=== PATIENT | male | born 1980 | race Caucasian/White ===

== ENCOUNTER 2020-07-07 12:15 | Emergency (ER) | payer OTHER, SELFPAY ==
--- NOTE | ~2020-07-07 | XR_ITS ---
EXAMINATION: XR CHEST CLINICAL INFORMATION: Leg swelling COMPARISON: 09/29/2019 TECHNIQUE: 2 views of the chest were obtained. FINDINGS: The lungs are well expanded. There is no focal consolidation, edema, or effusion. No pneumothorax. The cardiomediastinal silhouette is within normal limits. No acute osseous abnormality. XR/XR chest 2V IMPRESSION: Clear lungs.
[2020-07-07 13:29] VITALS: BP 143/84; PULSE 83; RESP 18; TEMP 36.8; O2SAT 96; BMI 34.4
--- NOTE | 2020-07-07 13:35 | ED.GENADULT ---
HPI - General Adult General Chief complaint: Weakness <Lizeth Espinoza NP - Last Filed: 07/07/20 13:38> Stated complaint: dehydrated,weakness <Lizeth Espinoza NP - Last Filed: 07/07/20 13:38> Time Seen by Provider: 07/07/20 13:35 <Lizeth Espinoza NP - Last Filed: 07/07/20 13:38> Source: patient <Ricardo Jones MD - Last Filed: 07/07/20 20:53> Mode of arrival: ambulatory <Ricardo Jones MD - Last Filed: 07/07/20 20:53> Limitations: no limitations <Ricardo Jones MD - Last Filed: 07/07/20 20:53> History of Present Illness HPI narrative: Patient with no significant past medical history 100 <Ricardo Jones MD - Last Filed: 07/07/20 20:53> Onset (ago): month(s) <Ricardo Jones MD - Last Filed: 07/07/20 20:53> Related Data Allergies/adverse reactions: Allergies Allergy/AdvReac Type Severity Reaction Status Date / Time codeine [CODEINE] Allergy Intermediate MY THROAT Unverified 02/18/20 16:26 AND CHEST FLOYD LOBSTER Allergy Unknown UNKNOWN Uncoded 02/18/20 16:26 SEAFOOD Allergy Unknown UNKNOWN Uncoded 02/18/20 16:26 SHELLFISH Allergy Unknown VOMITTING Uncoded 02/14/17 00:00 shellfish Allergy Unknown Swelling Uncoded 07/07/20 13:39 <Lizeth Espinoza NP - Last Filed: 07/07/20 13:38> [facility] Past Medical History Medical History: Medical History (Updated 07/07/20 @ 20:24 by Ricardo Jones MD) Hx of opioid abuse No known health problems <Lizeth Espinoza NP - Last Filed: 07/07/20 13:38> Social History Social History: Social History Advance Directives: No Advance Directives Information Provided: No <Lizeth Espinoza NP - Last Filed: 07/07/20 13:38> Physical Exam Vital Signs: Vital Signs: Last Vital Signs Temp 97.7 F 07/07/20 20:00 Pulse 65 07/07/20 20:00 Resp 18 07/07/20 20:00 BP 127/90 H 07/07/20 20:00 Pulse Ox 96 07/07/20 20:00 Body Mass Index 34.4 <Lizeth Espinoza NP - Last Filed: 07/07/20 13:38> Vital Signs: Last Vital Signs Temp 97.7 F 07/07/20 20:00 Pulse 65 07/07/20 20:00 Resp 18 07/07/20 20:00 BP 127/90 H 07/07/20 20:00 Pulse Ox 96 07/07/20 20:00 Body Mass Index 34.4 <Ricardo Jones MD - Last Filed: 07/07/20 20:53> Course Course Course Narrative: 1330-This is a rapid medical exam. 39 yo male here with generalized weakness, malaise x 2 months, bilateral lower edema. No chest pain, SOB. Will need labs, UA, CXR. Deferred additional HPI, PE and ROS to primary provider. <Lizeth Espinoza NP - Last Filed: 07/07/20 13:38> Medical Decision Making Lab Data Result diagrams: : 07/07/20 14:03 07/07/20 14:03 <Lizeth Espinoza NP - Last Filed: 07/07/20 13:38> Labs: Lab Results 07/07/20 07/07/20 07/07/20 Range/Units 14:03 14:03 14:03 WBC 4.9 (4.8-10.8) X10*3/uL RBC 4.63 (4.60-5.80) X10*6/uL Hgb 14.8 (14.0-18.0) g/dl Hct 44.8 (42-52) % MCV 96.8 (80-98) fL MCH 32.0 (27.0-33.0) pg MCHC 33.0 (31.0-36.0) g/dl RDW 11.9 (11.0-16.0) % Plt Count 173 (160-400) X10*3/uL MPV 10.3 (9.4-12.4) fL Immature Gran % (Auto) 0.2 (0.0-0.4) % Neut % (Auto) 48.8 (45-73) % Lymph % (Auto) 37.2 (20-40) % [place] % (Auto) 8.5 (2-11) % Eos % (Auto) 4.9 H (0-4) % Baso % (Auto) 0.4 (0-2) % Lymph # (Auto) 1.8 (1.2-4.9) X10*3/uL [place] # (Auto) 0.4 (0.1-1.2) X10*3/uL Eos # (Auto) 0.2 (0.0-0.4) X10*3/uL Baso # (Auto) 0.0 (0.0-0.2) X10*3/uL Abs Immat Gran (auto) 0.01 (0.00-0.03) X10*3/uL Absolute Neuts (auto) 2.4 (2.0-8.3) X10*3/uL Absolute Nucleated RBC 0.000 (0.0-0.012) X10*3/uL Nucleated RBC % (auto) 0.0 (0.0-0.2) /100WBC Hold Blue Top SEE NOTE Sodium 137 (135-145) mmol/L Potassium 4.6 (3.3-5.1) mmol/L Chloride 101 (96-108) mmol/L Carbon Dioxide 29 (22-29) mmol/L Anion Gap 12 (12-20) BUN 14 (9-16) mg/dL Creatinine 0.87 (0.5-1.4) mg/dL Estim Creat Clear Calc 138.0 Estimated GFR > 60 Random Glucose 98 (60-115) mg/dL Calcium 8.8 (8.4-10.2) mg/dL Magnesium 2.3 (1.6-2.6) mg/dL Total Bilirubin 0.3 (0.0-1.0) mg/dL Direct Bilirubin 0.2 (0.0-0.5) mg/dL AST 47 H (5-37) U/L ALT 63 H (0-40) U/L Alkaline Phosphatase 84 (39-117) U/L Total Protein 7.4 (6.5-8.0) g/dL Albumin 4.5 (3.5-5.0) g/dL Urine Color Urine Appearance Urine pH (5.0-8.0) Ur Specific [place] (1.005-1.025) Urine Protein (NEG-TRACE) MG/DL Urine Glucose (UA) (NEG) MG/DL Urine Ketones (NEG) MG/DL Urine Blood (NEG) Urine Nitrite (NEG) Ur Leukocyte Esterase (NEG) 07/07/20 Range/Units 19:50 WBC (4.8-10.8) X10*3/uL RBC (4.60-5.80) X10*6/uL Hgb (14.0-18.0) g/dl Hct (42-52) % MCV (80-98) fL MCH (27.0-33.0) pg MCHC (31.0-36.0) g/dl RDW (11.0-16.0) % Plt Count (160-400) X10*3/uL MPV (9.4-12.4) fL Immature Gran % (Auto) (0.0-0.4) % Neut % (Auto) (45-73) % Lymph % (Auto) (20-40) % [place] % (Auto) (2-11) % Eos % (Auto) (0-4) % Baso % (Auto) (0-2) % Lymph # (Auto) (1.2-4.9) X10*3/uL [place] # (Auto) (0.1-1.2) X10*3/uL Eos # (Auto) (0.0-0.4) X10*3/uL Baso # (Auto) (0.0-0.2) X10*3/uL Abs Immat Gran (auto) (0.00-0.03) X10*3/uL Absolute Neuts (auto) (2.0-8.3) X10*3/uL Absolute Nucleated RBC (0.0-0.012) X10*3/uL Nucleated RBC % (auto) (0.0-0.2) /100WBC Hold Blue Top Sodium (135-145) mmol/L Potassium (3.3-5.1) mmol/L Chloride (96-108) mmol/L Carbon Dioxide (22-29) mmol/L Anion Gap (12-20) BUN (9-16) mg/dL Creatinine (0.5-1.4) mg/dL Estim Creat Clear Calc Estimated GFR Random Glucose (60-115) mg/dL Calcium (8.4-10.2) mg/dL Magnesium (1.6-2.6) mg/dL Total Bilirubin (0.0-1.0) mg/dL Direct Bilirubin (0.0-0.5) mg/dL AST (5-37) U/L ALT (0-40) U/L Alkaline Phosphatase (39-117) U/L Total Protein (6.5-8.0) g/dL Albumin (3.5-5.0) g/dL Urine Color YELLOW Urine Appearance CLEAR Urine pH 5.5 (5.0-8.0) Ur Specific [place] >= 1.030 H (1.005-1.025) Urine Protein NEG (NEG-TRACE) MG/DL Urine Glucose (UA) NEG (NEG) MG/DL Urine Ketones NEG (NEG) MG/DL Urine Blood NEG (NEG) Urine Nitrite NEG (NEG) Ur Leukocyte Esterase NEG (NEG) <Lizeth Espinoza NP - Last Filed: 07/07/20 13:38> Lab Results 07/07/20 07/07/20 07/07/20 Range/Units 14:03 14:03 14:03 WBC 4.9 (4.8-10.8) X10*3/uL RBC 4.63 (4.60-5.80) X10*6/uL Hgb 14.8 (14.0-18.0) g/dl Hct 44.8 (42-52) % MCV 96.8 (80-98) fL MCH 32.0 (27.0-33.0) pg MCHC 33.0 (31.0-36.0) g/dl RDW 11.9 (11.0-16.0) % Plt Count 173 (160-400) X10*3/uL MPV 10.3 (9.4-12.4) fL Immature Gran % (Auto) 0.2 (0.0-0.4) % Neut % (Auto) 48.8 (45-73) % Lymph % (Auto) 37.2 (20-40) % [place] % (Auto) 8.5 (2-11) % Eos % (Auto) 4.9 H (0-4) % Baso % (Auto) 0.4 (0-2) % Lymph # (Auto) 1.8 (1.2-4.9) X10*3/uL [place] # (Auto) 0.4 (0.1-1.2) X10*3/uL Eos # (Auto) 0.2 (0.0-0.4) X10*3/uL Baso # (Auto) 0.0 (0.0-0.2) X10*3/uL Abs Immat Gran (auto) 0.01 (0.00-0.03) X10*3/uL Absolute Neuts (auto) 2.4 (2.0-8.3) X10*3/uL Absolute Nucleated RBC 0.000 (0.0-0.012) X10*3/uL Nucleated RBC % (auto) 0.0 (0.0-0.2) /100WBC Hold Blue Top SEE NOTE Sodium 137 (135-145) mmol/L Potassium 4.6 (3.3-5.1) mmol/L Chloride 101 (96-108) mmol/L Carbon Dioxide 29 (22-29) mmol/L Anion Gap 12 (12-20) BUN 14 (9-16) mg/dL Creatinine 0.87 (0.5-1.4) mg/dL Estim Creat Clear Calc 138.0 Estimated GFR > 60 Random Glucose 98 (60-115) mg/dL Calcium 8.8 (8.4-10.2) mg/dL Magnesium 2.3 (1.6-2.6) mg/dL Total Bilirubin 0.3 (0.0-1.0) mg/dL Direct Bilirubin 0.2 (0.0-0.5) mg/dL AST 47 H (5-37) U/L ALT 63 H (0-40) U/L Alkaline Phosphatase 84 (39-117) U/L Total Protein 7.4 (6.5-8.0) g/dL Albumin 4.5 (3.5-5.0) g/dL Urine Color Urine Appearance Urine pH (5.0-8.0) Ur Specific [place] (1.005-1.025) Urine Protein (NEG-TRACE) MG/DL Urine Glucose (UA) (NEG) MG/DL Urine Ketones (NEG) MG/DL Urine Blood (NEG) Urine Nitrite (NEG) Ur Leukocyte Esterase (NEG) 07/07/20 Range/Units 19:50 WBC (4.8-10.8) X10*3/uL RBC (4.60-5.80) X10*6/uL Hgb (14.0-18.0) g/dl Hct (42-52) % MCV (80-98) fL MCH (27.0-33.0) pg MCHC (31.0-36.0) g/dl RDW (11.0-16.0) % Plt Count (160-400) X10*3/uL MPV (9.4-12.4) fL Immature Gran % (Auto) (0.0-0.4) % Neut % (Auto) (45-73) % Lymph % (Auto) (20-40) % [place] % (Auto) (2-11) % Eos % (Auto) (0-4) % Baso % (Auto) (0-2) % Lymph # (Auto) (1.2-4.9) X10*3/uL [place] # (Auto) (0.1-1.2) X10*3/uL Eos # (Auto) (0.0-0.4) X10*3/uL Baso # (Auto) (0.0-0.2) X10*3/uL Abs Immat Gran (auto) (0.00-0.03) X10*3/uL Absolute Neuts (auto) (2.0-8.3) X10*3/uL Absolute Nucleated RBC (0.0-0.012) X10*3/uL Nucleated RBC % (auto) (0.0-0.2) /100WBC Hold Blue Top Sodium (135-145) mmol/L Potassium (3.3-5.1) mmol/L Chloride (96-108) mmol/L Carbon Dioxide (22-29) mmol/L Anion Gap (12-20) BUN (9-16) mg/dL Creatinine (0.5-1.4) mg/dL Estim Creat Clear Calc Estimated GFR Random Glucose (60-115) mg/dL Calcium (8.4-10.2) mg/dL Magnesium (1.6-2.6) mg/dL Total Bilirubin (0.0-1.0) mg/dL Direct Bilirubin (0.0-0.5) mg/dL AST (5-37) U/L ALT (0-40) U/L Alkaline Phosphatase (39-117) U/L Total Protein (6.5-8.0) g/dL Albumin (3.5-5.0) g/dL Urine Color YELLOW Urine Appearance CLEAR Urine pH 5.5 (5.0-8.0) Ur Specific [place] >= 1.030 H (1.005-1.025) Urine Protein NEG (NEG-TRACE) MG/DL Urine Glucose (UA) NEG (NEG) MG/DL Urine Ketones NEG (NEG) MG/DL Urine Blood NEG (NEG) Urine Nitrite NEG (NEG) Ur Leukocyte Esterase NEG (NEG) <Ricardo Jones MD - Last Filed: 07/07/20 20:53> Discharge Plan Discharge Clinical Impression: Weakness <Lizeth Espinoza NP - Last Filed: 07/07/20 13:38> Patient Disposition: Home, Self-Care <Lizeth Espinoza NP - Last Filed: 07/07/20 13:38> Instructions: Weakness (ED) <Lizeth Espinoza NP - Last Filed: 07/07/20 13:38> Additional Instructions: Drink plenty of fluid. Avoid fried and high carbohydrate diet , avoid alcohol Rest at home sleep well. Follow with PCP for routine workup and recheck of liver function <Lizeth Espinoza NP - Last Filed: 07/07/20 13:38> Stand Alone Forms: Work/School Release <Lizeth Espinoza NP - Last Filed: 07/07/20 13:38> Interventions: ED Discharge Assessment Last Done: 07/07/20 20:47 <Lizeth Espinoza NP - Last Filed: 07/07/20 13:38> Discharge Date/Time: 07/07/20 20:52 <Lizeth Espinoza NP - Last Filed: 07/07/20 13:38>
[2020-07-07 14:08] LABS: MANUAL DIFF FLAG NO
[2020-07-07 14:13] LABS: Basophils Percent Auto 0.4 % (0-2); Eosinophils Absolute Auto 0.2 X10*3/uL (0.0-0.4); Eosinophils Percent Auto 4.9 % (0-4); Hematocrit 44.8 % (42-52); Hemoglobin 14.8 g/dl (14.0-18.0); Imm Gran Abs Auto 0.01 X10*3/uL (0.00-0.03); Imm Gran Pct Auto 0.2 % (0.0-0.4); Lymphocytes Absolute Auto 1.8 X10*3/uL (1.2-4.9); Lymphocytes Percent Auto 37.2 % (20-40); Mean Corpuscular Volume 96.8 fL (80-98); Mean Platelet Volume 10.3 fL (9.4-12.4); Monocytes Absolute Auto 0.4 X10*3/uL (0.1-1.2); Monocytes Percent Auto 8.5 % (2-11); Neutrophils Absolute Auto 2.4 X10*3/uL (2.0-8.3); Neutrophils Percent Auto 48.8 % (45-73); Platelet Count 173 X10*3/uL (160-400); Red Blood Count 4.63 X10*6/uL (4.60-5.80); Red Cell Distribution Width 11.9 % (11.0-16.0); White Blood Count 4.9 X10*3/uL (4.8-10.8)
[2020-07-07 14:31] LABS: Alanine Aminotransferase 63 U/L (0-40); Albumin Level 4.5 g/dL (3.5-5.0); Alkaline Phosphatase 84 U/L (39-117); Anion Gap 12 (12-20); Aspartate Amino Transferase 47 U/L (5-37); Bilirubin Direct 0.2 mg/dL (0.0-0.5); Bilirubin Total 0.3 mg/dL (0.0-1.0); Blood Urea Nitrogen 14 mg/dL (9-16); Calcium 8.8 mg/dL (8.4-10.2); Carbon Dioxide 29 mmol/L (22-29); Chloride 101 mmol/L (96-108); Estimated Glomerular Filt Rate > 60; Glucose Random 98 mg/dL (60-115); Magnesium 2.3 mg/dL (1.6-2.6); Potassium 4.6 mmol/L (3.3-5.1); Sodium 137 mmol/L (135-145); Total Protein 7.4 g/dL (6.5-8.0)
[2020-07-07 19:57] LABS: Glucose Urine UA NEG (NEG); Leukocyte Esterase Urine NEG (NEG); Nitrite Urine NEG (NEG); PH 5.5 (5.0-8.0); Specific Gravity - Urine >= 1.030 (1.005-1.025); Urine Blood NEG (NEG); Urine Ketones NEG (NEG); Urine Protein NEG (NEG-TRACE)
[2020-07-07 19:58] LABS: Appearance Urine CLEAR; Color Urine YELLOW
[2020-07-07 20:00] VITALS: BP 127/90; PULSE 65; RESP 18; TEMP 36.5; O2SAT 96
--- NOTE | 2020-07-07 20:16 | ED.WEAKNESS ---
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 not eating well denies any fever no chills no cough no one at home is COVID positive also slight leg edema Complaint: generalized weakness Related Data Allergies Allergy/AdvReac Type Severity Reaction Status Date / Time codeine [CODEINE] Allergy Intermediate MY THROAT Unverified 02/18/20 16:26 AND CHEST FLOYD LOBSTER Allergy Unknown UNKNOWN Uncoded 02/18/20 16:26 SEAFOOD Allergy Unknown UNKNOWN Uncoded 02/18/20 16:26 SHELLFISH Allergy Unknown VOMITTING Uncoded 02/14/17 00:00 shellfish Allergy Unknown Swelling Uncoded 07/07/20 13:39 Review of Systems Review of Systems: Constitutional : No Weight loss, No Fever, No Chills ENT/Mouth : No sore throat, No Rhinorrhea Eyes: No Eye Pain, No Swelling Cardiovascular : No Chest Pain, no palpitations Respiratory : No Cough, No Sputum, no shortness of breath Gastrointestinal : no Nausea, No Vomiting, No Diarrhea, No abdominal Pain, no black stools Genitourinary : No Dysuria, No Urinary Frequency Musculoskeletal : No joint pain, No Myalgias, No Joint Swelling Skin : No Skin Lesions, No rash Neuro : No Weakness, No Numbness, No Dizziness, No Headache Psych : No Anxiety/Panic, No Depression Heme/Lymph: No Bruising, No Lymphadenopathy Endocrine : No Polyuria, No Polydipsia All other systems reviewed and are negative [facility] Past Medical History Medical History Hx of opioid abuse No known health problems Social History Social History Advance Directives: No Advance Directives Information Provided: No Physical Exam Vital Signs: Vital Signs: Last Vital Signs Temp 97.7 F 07/07/20 20:00 Pulse 65 07/07/20 20:00 Resp 18 07/07/20 20:00 BP 127/90 H 07/07/20 20:00 Pulse Ox 96 07/07/20 20:00 Body Mass Index 34.4 Appearance: Alert. Oriented X3. No acute distress. Eyes: Pupils equal, round and reactive to light. ENT: Pharynx normal. Neck: Normal inspection. Neck supple. CVS: Normal heart rate and rhythm. Pulses normal. Respiratory: No respiratory distress. Breath sounds normal. Abdomen: Soft and nontender. Bowel sounds are present, no mass palpable, no CVA tenderness Skin: Skin warm and dry. Normal skin color. Normal skin turgor. Extremities: Trace lower extremity edema. Neuro: Oriented X 3. No motor deficit. No sensory deficit. Course Course Course Narrative: Patient with nonspecific complaints and weakness seems like mostly depressed secondary to be workup is negative for any acute. Patient advised to drink plenty of fluids and follow with PCP MDM - Weakness Lab Data Result diagrams: 07/07/20 14:03 07/07/20 14:03 Labs: Lab Results 07/07/20 07/07/20 07/07/20 Range/Units 14:03 14:03 14:03 WBC 4.9 (4.8-10.8) X10*3/uL RBC 4.63 (4.60-5.80) X10*6/uL Hgb 14.8 (14.0-18.0) g/dl Hct 44.8 (42-52) % MCV 96.8 (80-98) fL MCH 32.0 (27.0-33.0) pg MCHC 33.0 (31.0-36.0) g/dl RDW 11.9 (11.0-16.0) % Plt Count 173 (160-400) X10*3/uL MPV 10.3 (9.4-12.4) fL Immature Gran % (Auto) 0.2 (0.0-0.4) % Neut % (Auto) 48.8 (45-73) % Lymph % (Auto) 37.2 (20-40) % [place] % (Auto) 8.5 (2-11) % Eos % (Auto) 4.9 H (0-4) % Baso % (Auto) 0.4 (0-2) % Lymph # (Auto) 1.8 (1.2-4.9) X10*3/uL [place] # (Auto) 0.4 (0.1-1.2) X10*3/uL Eos # (Auto) 0.2 (0.0-0.4) X10*3/uL Baso # (Auto) 0.0 (0.0-0.2) X10*3/uL Abs Immat Gran (auto) 0.01 (0.00-0.03) X10*3/uL Absolute Neuts (auto) 2.4 (2.0-8.3) X10*3/uL Absolute Nucleated RBC 0.000 (0.0-0.012) X10*3/uL Nucleated RBC % (auto) 0.0 (0.0-0.2) /100WBC Hold Blue Top SEE NOTE Sodium 137 (135-145) mmol/L Potassium 4.6 (3.3-5.1) mmol/L Chloride 101 (96-108) mmol/L Carbon Dioxide 29 (22-29) mmol/L Anion Gap 12 (12-20) BUN 14 (9-16) mg/dL Creatinine 0.87 (0.5-1.4) mg/dL Estim Creat Clear Calc 138.0 Estimated GFR > 60 Random Glucose 98 (60-115) mg/dL Calcium 8.8 (8.4-10.2) mg/dL Magnesium 2.3 (1.6-2.6) mg/dL Total Bilirubin 0.3 (0.0-1.0) mg/dL Direct Bilirubin 0.2 (0.0-0.5) mg/dL AST 47 H (5-37) U/L ALT 63 H (0-40) U/L Alkaline Phosphatase 84 (39-117) U/L Total Protein 7.4 (6.5-8.0) g/dL Albumin 4.5 (3.5-5.0) g/dL Urine Color Urine Appearance Urine pH (5.0-8.0) Ur Specific [place] (1.005-1.025) Urine Protein (NEG-TRACE) MG/DL Urine Glucose (UA) (NEG) MG/DL Urine Ketones (NEG) MG/DL Urine Blood (NEG) Urine Nitrite (NEG) Ur Leukocyte Esterase (NEG) 07/07/20 Range/Units 19:50 WBC (4.8-10.8) X10*3/uL RBC (4.60-5.80) X10*6/uL Hgb (14.0-18.0) g/dl Hct (42-52) % MCV (80-98) fL MCH (27.0-33.0) pg MCHC (31.0-36.0) g/dl RDW (11.0-16.0) % Plt Count (160-400) X10*3/uL MPV (9.4-12.4) fL Immature Gran % (Auto) (0.0-0.4) % Neut % (Auto) (45-73) % Lymph % (Auto) (20-40) % [place] % (Auto) (2-11) % Eos % (Auto) (0-4) % Baso % (Auto) (0-2) % Lymph # (Auto) (1.2-4.9) X10*3/uL [place] # (Auto) (0.1-1.2) X10*3/uL Eos # (Auto) (0.0-0.4) X10*3/uL Baso # (Auto) (0.0-0.2) X10*3/uL Abs Immat Gran (auto) (0.00-0.03) X10*3/uL Absolute Neuts (auto) (2.0-8.3) X10*3/uL Absolute Nucleated RBC (0.0-0.012) X10*3/uL Nucleated RBC % (auto) (0.0-0.2) /100WBC Hold Blue Top Sodium (135-145) mmol/L Potassium (3.3-5.1) mmol/L Chloride (96-108) mmol/L Carbon Dioxide (22-29) mmol/L Anion Gap (12-20) BUN (9-16) mg/dL Creatinine (0.5-1.4) mg/dL Estim Creat Clear Calc Estimated GFR Random Glucose (60-115) mg/dL Calcium (8.4-10.2) mg/dL Magnesium (1.6-2.6) mg/dL Total Bilirubin (0.0-1.0) mg/dL Direct Bilirubin (0.0-0.5) mg/dL AST (5-37) U/L ALT (0-40) U/L Alkaline Phosphatase (39-117) U/L Total Protein (6.5-8.0) g/dL Albumin (3.5-5.0) g/dL Urine Color YELLOW Urine Appearance CLEAR Urine pH 5.5 (5.0-8.0) Ur Specific [place] >= 1.030 H (1.005-1.025) Urine Protein NEG (NEG-TRACE) MG/DL Urine Glucose (UA) NEG (NEG) MG/DL Urine Ketones NEG (NEG) MG/DL Urine Blood NEG (NEG) Urine Nitrite NEG (NEG) Ur Leukocyte Esterase NEG (NEG) Discharge Plan Discharge Clinical Impression: Weakness Patient Disposition: Home, Self-Care Instructions: Weakness (ED) Additional Instructions: Drink plenty of fluid. Avoid fried and high carbohydrate diet , avoid alcohol Rest at home sleep well. Follow with PCP for routine workup and recheck of liver function Stand Alone Forms: Work/School Release Interventions: ED Discharge Assessment Last Done: 07/07/20 20:47 Discharge Date/Time: 07/07/20 20:52
== END 2020-07-07 20:52 | disposition home or self-care (01) ==
PROVIDERS: Nurse Practitioner Family; Emergency Provider Internal Medicine
DX: R53.1 Weakness (principal); R60.0 Localized edema; E86.0 Dehydration; Z20.822 Contact with and (suspected) exposure to COVID-19
CPT/HCPCS: 36415; 71046; 80048; 80076; 81003; 83735; 85025; 99283

== ENCOUNTER 2021-08-29 22:10 | Emergency (ER) | payer OTHER, SELFPAY ==
--- NOTE | ~2021-08-29 | CT_ITS ---
EXAMINATION: CT CHEST WITHOUT CONTRAST CLINICAL INFORMATION: Chest wall pain. Clinical third rib fracture on the left. COMPARISON: 08/22/2018 TECHNIQUE: Multidetector volumetric CT imaging of the chest was done. Axial MIP volume rendering provided. Sagittal and coronal reformatted images were obtained. This CT examination was performed using dose optimization techniques as appropriate, variously including the following: *Automated exposure control *Adjustment of mA and/or kV according to patient size (this includes techniques or standardized protocols for targeted exams where dose is matched to indication/reason for exam; i.e. extremities or head) *Use of iterative reconstruction technique DLP: 361 mGy-cm FINDINGS: LUNGS: Diffuse mild bronchial thickening and scattered endobronchial secretions redemonstrated. Previously, there are scattered nodular patchy opacities predominating within the middle lobe and bilateral lower lobes which have since largely resolved. There are a few micronodules within the azygoesophageal recess, along the medial left upper lobe, left lower lobe and right lower lobe, occurring sites of presumed more extensive parenchymal opacity likely representing chronic changes/granulomata. No suspicious pulmonary nodules. No evidence of active pneumonitis or pulmonary fibrosis. No pneumothorax. MEDIASTINUM: Normal heart size. No pericardial effusion. Great vessels normal caliber. No mediastinal or hilar lymphadenopathy. PLEURA: There is no pleural effusion. No pleural mass or thickening. AXILLA: No lymphadenopathy. UPPER ABDOMEN: Severe hepatic steatosis. OSSEOUS STRUCTURES: Acute nondisplaced left anterior rib fracture. No additional rib fractures. CT/CT chest wo con IMPRESSION: * Acute nondisplaced left anterior third rib fracture. * Again seen is diffuse mild bronchial thickening and scattered endobronchial secretions, possibly representing chronic bronchitis in this patient. * Severe diffuse hepatic steatosis.
--- NOTE | ~2021-08-29 | XR_ITS ---
EXAMINATION: XR CHEST CLINICAL INFORMATION: Chest pain. COMPARISON: 07/07/2020 chest radiographs. TECHNIQUE: 2 views of the chest were obtained. FINDINGS: No significant abnormality is noted involving the heart, lungs, mediastinum, bony thorax or soft tissues. XR/XR chest 2V IMPRESSION: No acute cardiopulmonary process.
[2021-08-29 22:21] VITALS: BP 142/100; PULSE 113; RESP 18; TEMP 36.9; O2SAT 96; BMI 34.4
--- NOTE | 2021-08-30 00:19 | ED.EXTPRO ---
HPI - Extremity Problem General Chief complaint: Extremity Injury, Upper Stated complaint: left side pain, felt a pop in his chest Time Seen by Provider: 08/30/21 00:19 Source: patient Mode of arrival: ambulatory Limitations: no limitations History of Present Illness HPI Narrative: Apparently patient was pushing heavy dresser using his left front of the chest and left shoulder about 3 days ago heard a pop and since then having pain in the left anterior chest increases on palpation and taking deep breath and movement of the left arm patient also smoker has chronic dry cough Related Data Previous Rx's Medication Instructions Recorded albuterol sulfate 90 mcg/actuation 2 puff INHALATION Q4-6H PRN #8.5 g 08/30/21 aerosol inhaler (ProAir HFA) ibuprofen 600 mg tablet 600 mg PO Q6H PRN #30 tab 08/30/21 prednisone 20 mg tablet 40 mg PO DAILY #10 tab 08/30/21 Allergies Allergy/AdvReac Type Severity Reaction Status Date / Time codeine [CODEINE] Allergy Intermediate MY THROAT Verified 08/29/21 22:21 AND CHEST FLOYD LOBSTER Allergy Unknown UNKNOWN Uncoded 08/29/21 22:21 SEAFOOD Allergy Unknown UNKNOWN Uncoded 08/29/21 22:21 SHELLFISH Allergy Unknown VOMITTING Uncoded 08/29/21 22:21 shellfish Allergy Unknown Swelling Uncoded 08/29/21 22:21 Review of Systems Review of Systems: Yes all other systems are reviewed and are negative PMFSH Past Medical History Medical History Hx of opioid abuse No known health problems Social History Social History Advance Directives: No Physical Exam Vital Signs: Vital Signs: Last Vital Signs Temp 98.4 F 08/29/21 22:21 Pulse 113 H 08/29/21 22:21 Resp 18 08/29/21 22:21 BP 142/100 H 08/29/21 22:21 Pulse Ox 96 08/29/21 22:21 BMI result Body Mass Index 34.4 Const: General: no acute distress and well developed Orientation/consciousness: patient oriented x3 HEENT: Head: Yes normocephalic and Yes atraumatic Neck: Neck: Yes full ROM and No tender Chest: Chest/axillae images: 1. Tender 3rd rib in the front no ecchymosis no crepitation Resp: Effort & Inspection: normal respiratory effort Auscultation: no rales, rhonchi and wheezes Cardio: Rate: regular rate and tachycardic Rhythm: regular rhythm Heart sounds: S1 normal heart sound present and S2 normal heart sound present Peripheral pulses: Peripheral pulses 2+ throughout GI: Inspection: Yes normal to inspection Palpation (GI): Soft to palpation and nontender Neuro: General: patient oriented x3 and no focal motor deficits MDM - Extremity (Nontraumatic) MDM Narrative Medical decision making narrative: Patient's left anterior 3rd rib fracture clinically x-ray was negative chest CT showed nondisplaced left 3rd rib anterior fracture discharge patient home on ibuprofen Discharge Plan Discharge Clinical Impression: Rib fracture, Acute bronchitis Patient Disposition: Home, Self-Care Instructions: Rib Fracture (ED), Acute Bronchitis (ED) Additional Instructions: Use inhaler as advised Stop smoking Ibuprofen for pain You have left 3rd rib fracture nondisplaced and it will heal off its own Prescriptions: New prednisone 20 mg tablet 40 mg PO DAILY Qty: 10 0RF ibuprofen 600 mg tablet 600 mg PO Q6H PRN (Reason: pain) Qty: 30 0RF albuterol sulfate [ProAir HFA] 90 mcg/actuation HFA aerosol inhaler 2 puff inhalation Q4-6H PRN (Reason: Wheezing) Qty: 8.5 0RF Stand Alone Forms: Work/School Release
[2021-08-30] MEDS: predniSONE 20 MG TABLET 40 MG PO (01:20)
[2021-08-30] MEDS: Ibuprofen 600 MG TABLET PO (01:21)
[2021-08-30] MEDS: Albuterol Sulfate 90 MCG 8 GM INHALER 4 PUFF INHALE (01:21)
== END 2021-08-30 01:28 | disposition home or self-care (01) ==
PROVIDERS: Emergency Provider Internal Medicine
DX: S22.32XA Fracture of one rib, left side, initial encounter for closed fracture (principal); X50.9XXA Other and unspecified overexertion or strenuous movements or postures, initial encounter; J20.9 Acute bronchitis, unspecified; F17.200 Nicotine dependence, unspecified, uncomplicated; Y93.E9 Activity, other interior property and clothing maintenance; Y92.013 Bedroom of single-family (private) house as the place of occurrence of the external cause; Y99.9 Unspecified external cause status
CPT/HCPCS: 71046; 71250; 99283; 99284

== ENCOUNTER 2022-05-07 00:59 | Emergency (ER) | payer OTHER, SELFPAY ==
--- NOTE | ~2022-05-07 | XR_ITS ---
EXAMINATION: XR CHEST CLINICAL INFORMATION: Chest pain COMPARISON: 08/29/2021 TECHNIQUE: 2 views of the chest were obtained. FINDINGS: The lungs are clear with no focal consolidation. No evidence of pneumothorax, pulmonary edema, or pleural effusions. The cardiomediastinal silhouette is unremarkable. No acute osseous findings. XR/XR chest 2V IMPRESSION: No acute cardiopulmonary findings.
[2022-05-07 01:09] VITALS: BP 153/95; PULSE 98; RESP 17; TEMP 36.8; O2SAT 95; BMI 31.5
--- NOTE | 2022-05-07 01:12 | ECG_ITS ---
Test Reason : CP Blood Pressure : / mmHG Vent. Rate : 087 BPM Atrial Rate : 087 BPM P-R Int : 134 ms QRS Dur : 082 ms QT Int : 356 ms P-R-T Axes : 067 060 042 degrees QTc Int : 428 ms Normal sinus rhythm Normal ECG When compared with ECG of 06-FEB-2020 21:01, No significant change was found Referred By: Generic ED Physician Electronically Signed By:JUAN MARTINEZ MD
[2022-05-07 01:31] LABS: MANUAL DIFF FLAG NO
[2022-05-07 01:33] LABS: Basophils Percent Auto 0.5 % (0-2); Eosinophils Absolute Auto 0.3 X10*3/uL (0.0-0.4); Eosinophils Percent Auto 4.3 % (0-4); Hemoglobin 15.3 g/dl (14.0-18.0); Imm Gran Abs Auto 0.02 X10*3/uL (0.00-0.03); Imm Gran Pct Auto 0.3 % (0.0-0.4); Lymphocytes Absolute Auto 2.2 X10*3/uL (1.2-4.9); Lymphocytes Percent Auto 29.5 % (20-40); Mean Corpuscular Hemoglobin 32.8 pg (27.0-33.0); Mean Corpuscular Volume 96.6 fL (80.0-98.0); Monocytes Absolute Auto 0.7 X10*3/uL (0.1-1.2); Monocytes Percent Auto 9.5 % (2-11); Neutrophils Absolute Auto 4.1 x10*3/uL (2.0-8.3); Neutrophils Percent Auto 55.9 % (45-73); Platelet Count 168 X10*3/uL (160-400); Red Blood Count 4.66 X10*6/uL (4.60-5.80); Red Cell Distribution Width 11.4 % (11.0-16.0); White Blood Count 7.3 X10*3/uL (4.8-10.8)
[2022-05-07 01:45] LABS: Alanine Aminotransferase 33 U/L (0-40); Albumin Level 4.3 g/dL (3.5-5.0); Alkaline Phosphatase 81 U/L (39-117); Anion Gap 13 (12-20); Aspartate Amino Transferase 24 U/L (5-37); Bilirubin Total 0.3 mg/dL (0.0-1.0); Blood Urea Nitrogen 14 mg/dL (9-16); Carbon Dioxide 26 mmol/L (22-29); Chloride 106 mmol/L (96-108); Creatinine Clr Calc Pharmacy 137.5; Estimated Glomerular Filt Rate > 60; Glucose Random 107 mg/dL (60-115); Potassium 4.1 mmol/L (3.3-5.1); Sodium 141 mmol/L (135-145); Total Protein 6.9 g/dL (6.5-8.0)
[2022-05-07 01:52] LABS: Troponin-I High Sensitivity < 3.5 ng/L (<3.5-35.0)
[2022-05-07 02:09] LABS: Influenza A PCR NEGATIVE (Negative); Influenza B PCR NEGATIVE (Negative); Resp Syncy Virus RNA Qual PCR NEGATIVE (Negative); SARS COV2 PCR INHOUSE NEGATIVE (Negative)
[2022-05-07 02:24] VITALS: BP 132/85; PULSE 84; RESP 18; TEMP 36.7; O2SAT 96
--- NOTE | 2022-05-07 03:07 | ED.CHESTPAIN ---
HPI - Chest Pain General Chief Complaint: Chest Pain Stated Complaint: CP after coughing fits Time Seen by Provider: 05/07/22 03:07 Source: patient Mode of arrival: ambulatory Limitations: no limitations History of Present Illness HPI narrative: 41-year-old male who presents emergency department for evaluation of cough, chest pain, rhinorrhea and shortness of breath x3 days. The patient states that he has a cough which is productive of light green sputum. He states that he has been coughing frequently and he believes that he may have pulled a muscle in his right chest. He states that over the past 2 days he has been having pain in his right chest which is worse with coughing, the pain is a constant, dull ache and is also worse push as on his chest. He denied fever or chills. He denied dyspnea on exertion, nausea, vomiting or diarrhea. The patient does smoke 1 pack of cigarettes per day. He states that he has been in a methadone program for 15 years he denies using drugs. MD complaint: chest pain Onset (ago): day(s) (2) Timing of current episode: constant Prior episodes: No Onset: other (Cough) Pain location: right chest Pain radiation: none Severity: moderate Quality: aching Relieving factors: nothing Exacerbating factors: other (Coughing, pushing on right) Context: recent illness Associated symptoms: cough Related Data Previous Rx's Medication Instructions Recorded albuterol sulfate 90 mcg/actuation 2 puff inhalation Q4-6H PRN 08/30/21 aerosol inhaler (ProAir HFA) Wheezing #8.5 grams ibuprofen 600 mg tablet 600 mg PO Q6H PRN pain #30 tabs 08/30/21 prednisone 20 mg tablet 40 mg PO DAILY #10 tabs 08/30/21 doxycycline hyclate 100 mg tablet 100 mg PO Q12H 10 days #20 tabs 05/07/22 ibuprofen 600 mg tablet 600 mg PO Q6H PRN pain #30 tabs 05/07/22 Allergies Allergy/AdvReac Type Severity Reaction Status Date / Time codeine [CODEINE] Allergy Intermediate MY THROAT Verified 05/07/22 01:09 AND CHEST FLOYD LOBSTER Allergy Unknown UNKNOWN Uncoded 05/07/22 01:09 SEAFOOD Allergy Unknown UNKNOWN Uncoded 05/07/22 01:09 SHELLFISH Allergy Unknown VOMITTING Uncoded 05/07/22 01:09 shellfish Allergy Unknown Swelling Uncoded 05/07/22 01:09 Review of Systems Review of Systems: Yes all other systems are reviewed and are negative [facility] Past Medical History [facility] Narrative: Social history: The patient does smoke cigarettes, he smokes 1 pack of cigarettes per day times many years. He occasionally drinks alcohol. He denies drug use but he is in a methadone program takes 30 mg of methadone daily. Medical History Hx of opioid abuse No known health problems Social History Social History Advance Directives: No Advance Directives Information Provided: No Physical Exam Vital Signs: Vital Signs: Last Vital Signs Temp 98.0 F 05/07/22 02:24 Pulse 84 05/07/22 02:24 Resp 18 05/07/22 02:24 BP 132/85 05/07/22 02:24 Pulse Ox 96 05/07/22 02:24 O2 Del Method 05/07/22 02:24 BMI result Body Mass Index 31.5 Const: General: cooperative and no acute distress Orientation/consciousness: oriented to person and oriented to place Limitations: no limitations HEENT: Head: Yes normal to inspection, Yes normocephalic and Yes atraumatic Ears: external ears normal General nose exam: Normal external nose present Face and sinus: Yes normal facial exam Mouth: Normal oral and palatal mucosa present Throat: Yes posterior oropharynx normal Eyes: General: appearance normal, both eyes and all related structures Pupils: Equal, round and reactive pupils present Neck: Neck: Yes normal visual inspection, Yes no lymphadenopathy, Yes trachea midline and Yes supple Chest: Chest palpation & inspection: normal inspection of the chest and tenderness (Moderate right into chest wall tenderness) Resp: Effort & Inspection: normal respiratory effort and able to speak in complete sentences Auscultation: clear to auscultation bilaterally Cardio: Rate: regular rate Rhythm: regular rhythm Heart sounds: S1 normal heart sound present, S2 normal heart sound present and no murmurs GI: Inspection: Yes normal to inspection Palpation (GI): Soft to palpation, nontender and no guarding Auscultation: normal bowel sounds : General: Yes no CVA tenderness Back/Spine/Pelvis: Back: no CVA tenderness Skin: General skin exam: no rashes or lesions noted Neuro: General: oriented to person and oriented to place Cranial nerves: Yes CN's II-XII intact bilaterally and Yes Equal, round and reactive pupils present Cognition (Neuro): normal cognition Motor exam (neuro): 5/5 motor strength present throughout Extrem: General: Yes normal to inspection Psych: Appearance: grossly normal Speech and movement: Normal speech and movement present Affect: normal affect Attitude: cooperative Thought process: Normal thought process present Thought content: Normal thought content present Course Course Course Narrative: 41-year-old male who presents emergency department for evaluation of cough x3 days associated with runny nose, shortness of breath and right-sided chest pain that started after coughing. Patient's vital signs revealed an elevated blood pressure of 153/95 which improved to 130 2/85. The patient's vital signs were otherwise unremarkable. Patient's lung exam was clear. The patient did have right-sided anterior chest wall tenderness. The patient had a chest x-ray was unremarkable. Patient had a CBC, CMP which was normal. The patient's COVID-19, RSV and flu test were negative. Given the patient's smoking history and concerned that might have a bacterial bronchitis. The patient was given doxycycline 100 mg orally here in the emergency department and also ibuprofen 600 mg orally for his chest wall pain . Patient will be treated with doxycycline 100 mg twice a day for 7 days and ibuprofen 600 mg 3 times a day as needed for pain. He was given printed and verbal instructions discharged home. MDM - Chest Pain Lab Data Result diagrams: 05/07/22 01:24 05/07/22 01:24 Labs: Lab Results 05/07/22 05/07/22 05/07/22 Range/Units 01:17 01:24 01:24 WBC 7.3 (4.8-10.8) X10*3/uL RBC 4.66 (4.60-5.80) X10*6/uL Hgb 15.3 (14.0-18.0) g/dl Hct 45.0 (42.0-52.0) % MCV 96.6 (80.0-98.0) fL MCH 32.8 (27.0-33.0) pg MCHC 34.0 (31.0-36.0) g/dl RDW 11.4 (11.0-16.0) % Plt Count 168 (160-400) X10*3/uL MPV 10.0 (9.4-12.4) fL Immature Gran % (Auto) 0.3 (0.0-0.4) % Neut % (Auto) 55.9 (45-73) % Lymph % (Auto) 29.5 (20-40) % Pierce % (Auto) 9.5 (2-11) % Eos % (Auto) 4.3 H (0-4) % Baso % (Auto) 0.5 (0-2) % Lymph # (Auto) 2.2 (1.2-4.9) X10*3/uL Pierce # (Auto) 0.7 (0.1-1.2) X10*3/uL Eos # (Auto) 0.3 (0.0-0.4) X10*3/uL Baso # (Auto) 0.0 (0.0-0.2) X10*3/uL Abs Immat Gran (auto) 0.02 (0.00-0.03) X10*3/uL Absolute Neuts (auto) 4.1 (2.0-8.3) x10*3/uL Absolute Nucleated RBC 0.000 (0.0-0.012) X10*3/uL Nucleated RBC % (auto) 0.0 (0.0-0.2) /100WBC Sodium 141 (135-145) mmol/L Potassium 4.1 (3.3-5.1) mmol/L Chloride 106 (96-108) mmol/L Carbon Dioxide 26 (22-29) mmol/L Anion Gap 13 (12-20) BUN 14 (9-16) mg/dL Creatinine 0.82 (0.5-1.4) mg/dL Estim Creat Clear Calc 137.5 Estimated GFR > 60 Random Glucose 107 (60-115) mg/dL Calcium 9.0 (8.4-10.2) mg/dL Total Bilirubin 0.3 (0.0-1.0) mg/dL AST 24 (5-37) U/L ALT 33 (0-40) U/L Alkaline Phosphatase 81 (39-117) U/L Troponin I High Sens (<3.5-35.0) ng/L Total Protein 6.9 (6.5-8.0) g/dL Albumin 4.3 (3.5-5.0) g/dL Influenza Type A (PCR) NEGATIVE (Negative) Influenza Type B (PCR) NEGATIVE (Negative) RSV RNA Qual (PCR) NEGATIVE (Negative) SARS-CoV-2 RNA (RT-PCR) NEGATIVE (Negative) 05/07/22 Range/Units 01:24 WBC (4.8-10.8) X10*3/uL RBC (4.60-5.80) X10*6/uL Hgb (14.0-18.0) g/dl Hct (42.0-52.0) % MCV (80.0-98.0) fL MCH (27.0-33.0) pg MCHC (31.0-36.0) g/dl RDW (11.0-16.0) % Plt Count (160-400) X10*3/uL MPV (9.4-12.4) fL Immature Gran % (Auto) (0.0-0.4) % Neut % (Auto) (45-73) % Lymph % (Auto) (20-40) % Pierce % (Auto) (2-11) % Eos % (Auto) (0-4) % Baso % (Auto) (0-2) % Lymph # (Auto) (1.2-4.9) X10*3/uL Pierce # (Auto) (0.1-1.2) X10*3/uL Eos # (Auto) (0.0-0.4) X10*3/uL Baso # (Auto) (0.0-0.2) X10*3/uL Abs Immat Gran (auto) (0.00-0.03) X10*3/uL Absolute Neuts (auto) (2.0-8.3) x10*3/uL Absolute Nucleated RBC (0.0-0.012) X10*3/uL Nucleated RBC % (auto) (0.0-0.2) /100WBC Sodium (135-145) mmol/L Potassium (3.3-5.1) mmol/L Chloride (96-108) mmol/L Carbon Dioxide (22-29) mmol/L Anion Gap (12-20) BUN (9-16) mg/dL Creatinine (0.5-1.4) mg/dL Estim Creat Clear Calc Estimated GFR Random Glucose (60-115) mg/dL Calcium (8.4-10.2) mg/dL Total Bilirubin (0.0-1.0) mg/dL AST (5-37) U/L ALT (0-40) U/L Alkaline Phosphatase (39-117) U/L Troponin I High Sens < 3.5 (<3.5-35.0) ng/L Total Protein (6.5-8.0) g/dL Albumin (3.5-5.0) g/dL Influenza Type A (PCR) (Negative) Influenza Type B (PCR) (Negative) RSV RNA Qual (PCR) (Negative) SARS-CoV-2 RNA (RT-PCR) (Negative) Discharge Plan Discharge Clinical Impression: Acute bronchitis, Acute chest wall pain Patient Disposition: Home, Self-Care Instructions: Acute Bronchitis (ED) Additional Instructions: Your chest x-ray was normal with no evidence of pneumonia at this time. Your laboratory evaluation was normal. Your symptoms are consistent with a bacterial bronchitis, given your smoking history I want to treat you with antibiotics. Take ibuprofen 6 out mg pills, 1 pills every 6 hours as needed for pain. Take doxycycline 100 mg, 1 pill every 12 hours for 7 days Follow-up with your doctor in 2 days. Please return to the emergency department if your symptoms get worse or if you develop any symptoms that are concerning to you. Prescriptions: New ibuprofen 600 mg tablet 600 mg PO Q6H PRN (Reason: pain) Qty: 30 0RF doxycycline hyclate 100 mg tablet 100 mg PO Q12H 10 Days Qty: 20 0RF No Action prednisone 20 mg tablet 40 mg PO DAILY Qty: 10 0RF ibuprofen 600 mg tablet 600 mg PO Q6H PRN (Reason: pain) Qty: 30 0RF albuterol sulfate [ProAir HFA] 90 mcg/actuation HFA aerosol inhaler 2 puff inhalation Q4-6H PRN (Reason: Wheezing) Qty: 8.5 0RF
[2022-05-07] MEDS: Ibuprofen 600 MG TABLET PO (03:22)
[2022-05-07] MEDS: Doxycycline Monohydrate 100 MG CAPSULE PO (03:22)
--- NOTE | 2022-05-07 03:23 | PC.NURSE ---
Pt a&o,no sob or chest pain, pt medicated per Mar.
== END 2022-05-07 03:35 | disposition home or self-care (01) ==
PROVIDERS: Emergency Provider Emergency Medicine Emergency Medical Services
DX: J20.9 Acute bronchitis, unspecified (principal); R07.89 Other chest pain; Z20.822 Contact with and (suspected) exposure to COVID-19; F11.10 Opioid abuse, uncomplicated
CPT/HCPCS: 0241U; 36415; 71046; 80053; 84484; 85025; 93005; 99283; 99285

== ENCOUNTER 2022-09-04 11:21 | Emergency (ER) | payer OTHER, SELFPAY ==
[2022-09-04] VITALS (8 sets, daily range): BP systolic 111–148; BP diastolic 70–93; PULSE 83–100; RESP 16–22; TEMP 36.8–37.1; O2SAT 87–97; BMI 31.6
--- NOTE | ~2022-09-04 | CT_ITS ---
EXAMINATION: CT ANGIOGRAM OF THE CHEST WITH AND WITHOUT CONTRAST (CT PULMONARY ANGIOGRAM FOR PE) CLINICAL INFORMATION: Reason for Exam hypoxix 79% COMPARISON: None available. TECHNIQUE: Prior to contrast administration, noncontrast localization images were obtained. Subsequently, multidetector volumetric imaging was performed from the thoracic inlet to below the diaphragms following the administration of 80 mL Omnipaque 350 intravenous contrast. No contrast reaction reported Sagittal, coronal, and MIP oblique sagittal reformatted images were obtained on the CT workstation, uploaded to PACS, and reviewed. This CT examination was performed using dose optimization techniques as appropriate, variously including the following: *Automated exposure control *Adjustment of mA and/or kV according to patient size (this includes techniques or standardized protocols for targeted exams where dose is matched to indication/reason for exam; i.e. extremities or head) *Use of iterative reconstruction technique Total exam dose-length product 382 mGy-cm FINDINGS: QUALITY OF STUDY/CONTRAST BOLUS: Satisfactory. PULMONARY ARTERIES: There is no intraluminal filling defect or narrowing.. THORACIC AORTA: No aneurysm. LUNG: The lungs are well-expanded and clear of acute process. There are no pulmonary nodules, mass or consolidation. PLEURA: No pleural effusion or pneumothorax. MEDIASTINUM: Normal heart size. No pericardial effusion. No hilar or mediastinal lymphadenopathy. No evidence of septal bowing or right heart strain. There are subcarinal and pretracheal small lymph nodes. CORONARY ARTERY CALCIFICATION: Mild coronary artery calcification are present CHEST WALL/AXILLA: No axillary or internal mammary lymphadenopathy. OSSEOUS STRUCTURES: No aggressive lytic or sclerotic process seen. UPPER ABDOMEN: Visualized liver, spleen, pancreas and bilateral adrenal glands are unremarkable. No reflux of contrast into the hepatic veins to suggest elevated right heart pressures. CT/CT angio chest PE protocol IMPRESSION: No evidence of PE. No evidence aortic dissection or aneurysm. VTE: negative
--- NOTE | 2022-09-04 11:24 | ED.GENADULT ---
HPI - General Adult General Chief complaint: Upper Respiratory Symptoms <KOLE Augustin - Last Filed: 09/04/22 11:31> Stated complaint: Dehydrated <KOLE Augustin - Last Filed: 09/04/22 11:31> Time Seen by Provider: 09/04/22 11:43 <KOLE Augustin - Last Filed: 09/04/22 11:31> Source: patient <Checo Hooks MD - Last Filed: 09/04/22 18:48> Mode of arrival: ambulatory <Checo Hooks MD - Last Filed: 09/04/22 18:48> Limitations: no limitations <Checo Hooks MD - Last Filed: 09/04/22 18:48> History of Present Illness HPI narrative: 41-year-old male who presents emergency department for evaluation of cough, shortness of breath, decreased appetite, fatigue. The patient started on Saturday (08/31/2022-5 days prior) while he was at work. He states that he had a sudden onset of feeling very hot and shaking chills. He states he is feeling very fatigued. He then developed a cough which she states is productive of thick green sputum. He states the symptoms have gotten worse in his cough is gotten worse. He has lost his appetite but has been able to drink fluid. He has had nausea with no vomiting. He denied diarrhea. He states he is feeling fatigued. He denied myalgias or arthralgias. He has not noticed any pain or swelling in his extremities, he has not had any recent surgeries or gone on any long trips. Patient states that he has been vaccinated against COVID. Patient was seen by private either at triage and was found to have an O2 saturation of 87% on room air. Patient was brought immediately back to a ED bed for treatment. <Checo Hooks MD - Last Filed: 09/04/22 18:48> Related Data Home medications: Previous Rx's Medication Instructions Recorded albuterol sulfate 90 mcg/actuation 2 puff inhalation Q4-6H PRN 08/30/21 aerosol inhaler (ProAir HFA) Wheezing #8.5 grams ibuprofen 600 mg tablet 600 mg PO Q6H PRN pain #30 tabs 08/30/21 prednisone 20 mg tablet 40 mg PO DAILY #10 tabs 08/30/21 doxycycline hyclate 100 mg tablet 100 mg PO Q12H 10 days #20 tabs 05/07/22 ibuprofen 600 mg tablet 600 mg PO Q6H PRN pain #30 tabs 05/07/22 amoxicillin 500 mg capsule 1,000 mg PO TID 5 days #30 caps 09/04/22 azithromycin 250 mg tablet See Rx Instructions PO .COMPLEX #6 09/04/22 (Zithromax Z-Augie) tabs prednisone 20 mg tablet 60 mg PO DAILY 5 days #15 tabs 09/04/22 <KOLE Augustin - Last Filed: 09/04/22 11:31> Allergies/adverse reactions: Allergies Allergy/AdvReac Type Severity Reaction Status Date / Time codeine [CODEINE] Allergy Intermediate MY THROAT Verified 09/04/22 11:23 AND CHEST FLOYD LOBSTER Allergy Unknown UNKNOWN Uncoded 09/04/22 11:23 SEAFOOD Allergy Unknown UNKNOWN Uncoded 09/04/22 11:23 SHELLFISH Allergy Unknown VOMITTING Uncoded 09/04/22 11:23 shellfish Allergy Unknown Swelling Uncoded 09/04/22 11:23 <KOLE Augustin - Last Filed: 09/04/22 11:31> Review of Systems Review of Systems: Yes all other systems are reviewed and are negative <Checo Hooks MD - Last Filed: 09/04/22 18:48> [facility] Past Medical History [facility] Narrative: Past medical history: None. Social history: He has a remote history of oxycodone abuse, he has been in a methadone program for approximately 16 years and states that he has not used any opiates. He denies any other drug use. Patient does smoke 1 pack of cigarettes per day times 30 years. He states that he drinks alcohol once a month. <Checo Hooks MD - Last Filed: 09/04/22 18:48> Medical History: Medical History Hx of opioid abuse No known health problems <KOLE Augustin - Last Filed: 09/04/22 11:31> Social History Social History: Social History Alcohol intake: current Alcohol intake frequency: a few times a month Smoked in Last 30 Days: Yes Use of substances other than those prescribed or required for medical reasons: No Advance Directives: No Advance Directives Information Provided: No <KOLE Augustin - Last Filed: 09/04/22 11:31> Physical Exam ED Vital Signs: Vital Signs - 24 hr 09/04/22 11:23 09/04/22 11:43 09/04/22 11:44 Temperature 98.8 F Pulse Rate 98 100 Respiratory Rate 19 22 H Blood Pressure 145/91 H 148/93 H Pulse Oximetry 87 L 93 93 Oxygen Delivery Method Room Air Nasal Cannula Nasal Cannula Oxygen Flow Rate 2 09/04/22 13:06 09/04/22 14:29 09/04/22 18:33 Temperature 98.3 F 98.6 F Pulse Rate 83 89 91 Respiratory Rate 18 16 Blood Pressure 111/70 121/81 Pulse Oximetry 97 97 Oxygen Delivery Method Nasal Cannula Room Air Oxygen Flow Rate 2 BMI result Body Mass Index 31.6 <KOLE Augustin - Last Filed: 09/04/22 11:31> Vital Signs - 24 hr 09/04/22 11:23 09/04/22 11:43 09/04/22 11:44 Temperature 98.8 F Pulse Rate 98 100 Respiratory Rate 19 22 H Blood Pressure 145/91 H 148/93 H Pulse Oximetry 87 L 93 93 Oxygen Delivery Method Room Air Nasal Cannula Nasal Cannula Oxygen Flow Rate 2 09/04/22 13:06 09/04/22 14:29 09/04/22 18:33 Temperature 98.3 F 98.6 F Pulse Rate 83 89 91 Respiratory Rate 18 16 Blood Pressure 111/70 121/81 Pulse Oximetry 97 97 Oxygen Delivery Method Nasal Cannula Room Air Oxygen Flow Rate 2 BMI result Body Mass Index 31.6 <Checo Hooks MD - Last Filed: 09/04/22 18:48> Const General: cooperative and no acute distress <Checo Hooks MD - Last Filed: 09/04/22 18:48> Orientation/consciousness: oriented to person and oriented to place <Checo Hooks MD - Last Filed: 09/04/22 18:48> Limitations: no limitations <Checo Hooks MD - Last Filed: 09/04/22 18:48> HENMT Head: Yes normal to inspection, Yes normocephalic and Yes atraumatic <Checo Hooks MD - Last Filed: 09/04/22 18:48> Ears: external ears normal <MD Tyesha Purdy Last Filed: 09/04/22 18:48> General nose exam: Normal external nose present <MD Tyesha Purdy Last Filed: 09/04/22 18:48> Face and sinus: Yes normal facial exam <MD Tyesha Purdy Last Filed: 09/04/22 18:48> Mouth: Normal oral and palatal mucosa present <MD Tyesha Purdy Last Filed: 09/04/22 18:48> Throat: Yes posterior oropharynx normal <MD Tyesha Purdy Last Filed: 09/04/22 18:48> Eyes General: appearance normal, both eyes and all related structures <MD Tyesha Purdy Last Filed: 09/04/22 18:48> Pupils: Equal, round and reactive pupils present <MD Tyesha Purdy Last Filed: 09/04/22 18:48> Neck Neck: Yes normal visual inspection, Yes no lymphadenopathy, Yes trachea midline and Yes supple <MD Tyesha Purdy Last Filed: 09/04/22 18:48> Chest Chest palpation & inspection: normal inspection of the chest and normal palpation of entire chest wall <MD Tyesha Purdy Last Filed: 09/04/22 18:48> Resp Effort & Inspection: normal respiratory effort and able to speak in complete sentences <MD Tyesha Purdy Last Filed: 09/04/22 18:48> Auscultation: clear to auscultation bilaterally <MD Tyesha Purdy Last Filed: 09/04/22 18:48> Cardio Rate: regular rate <MD Tyesha Purdy Last Filed: 09/04/22 18:48> Rhythm: regular rhythm <Checo Hooks MD - Last Filed: 09/04/22 18:48> Heart sounds: S1 normal heart sound present, S2 normal heart sound present and no murmurs <Checo Hooks MD - Last Filed: 09/04/22 18:48> GI Inspection: Yes normal to inspection <Checo Hooks MD - Last Filed: 09/04/22 18:48> Palpation (GI): Soft to palpation, nontender and no guarding <Checo Hooks MD - Last Filed: 09/04/22 18:48> Auscultation: normal bowel sounds <MD Tyesha Purdy Last Filed: 09/04/22 18:48> General: Yes no CVA tenderness <Checo Hooks MD - Last Filed: 09/04/22 18:48> Back/Spine/Pelvis Back: no CVA tenderness <Checo Hooks MD - Last Filed: 09/04/22 18:48> Skin General skin exam: no rashes or lesions noted <Checo Hooks MD - Last Filed: 09/04/22 18:48> Neuro General: oriented to person and oriented to place <Checo Hooks MD - Last Filed: 09/04/22 18:48> Cranial nerves: Yes CN's II-XII intact bilaterally and Yes Equal, round and reactive pupils present <MD Tyesha Purdy Last Filed: 09/04/22 18:48> Cognition (Neuro): normal cognition <MD Tyesha Purdy Last Filed: 09/04/22 18:48> Motor exam (neuro): 5/5 motor strength present throughout <MD Tyesha Purdy Last Filed: 09/04/22 18:48> Extrem General: Yes normal to inspection <MD Tyesha Purdy Last Filed: 09/04/22 18:48> Psych Appearance: grossly normal <MD Tyesha Purdy Last Filed: 09/04/22 18:48> Speech and movement: Normal speech and movement present <MD Tyesha Purdy Last Filed: 09/04/22 18:48> Affect: normal affect <Checo Hooks MD - Last Filed: 09/04/22 18:48> Attitude: cooperative <Checo Hooks MD - Last Filed: 09/04/22 18:48> Course Course Course Narrative: This is an RME: Additional HPI, ROS, PE not included below will be deferred to primary provider.41-year-old male presents for evaluation of dehydration reporting fatigue, cough, malaise, body aches and pains, poor p.o. intake, vomiting, nausea since Saturday. Denies any sick contacts. Tells me he feels horrible and thinks he has the flu. Denies fevers, chills, chest pain, shortness of breath, headache vision changes, dizziness and weakness. Physical exam benign hoever hypoxic at 84% After ambulation patient is saturating 79% on room air plan- basic labs, viral tests <KOLE Augustin - Last Filed: 09/04/22 11:31> Medications Administered Discontinued Medications Generic Name Dose Route Start Last Admin Trade Name Freq PRN Reason Stop Dose Admin Sodium Chloride 2,190 mls @ 2,190 mls/hr 09/04/22 11:51 09/04/22 14:23 Ns IV 09/04/22 12:50 Infused .Q1H STA Infusion Ceftriaxone Sodium 1 gm/ 50 mls @ 100 mls/hr 09/04/22 11:51 09/04/22 12:39 Sodium Chloride IV 09/04/22 12:20 Infused ONCE ONE Infusion Azithromycin 500 mg/ Sodium 250 mls @ 125 mls/hr 09/04/22 11:51 09/04/22 15:00 Chloride IV 09/04/22 13:50 Infused ONCE ONE Infusion Iohexol 100 ml 09/04/22 12:53 09/04/22 12:53 Iohexol 350 Mg/Ml 100 Ml Infus..Btl IV 09/04/22 12:54 65 ml ONCE ONE Administration <KOLE Augustin - Last Filed: 09/04/22 11:31> Medications Administered Discontinued Medications Generic Name Dose Route Start Last Admin Trade Name Freq PRN Reason Stop Dose Admin Sodium Chloride 2,190 mls @ 2,190 mls/hr 09/04/22 11:51 09/04/22 14:23 Ns IV 09/04/22 12:50 Infused .Q1H STA Infusion Ceftriaxone Sodium 1 gm/ 50 mls @ 100 mls/hr 09/04/22 11:51 09/04/22 12:39 Sodium Chloride IV 09/04/22 12:20 Infused ONCE ONE Infusion Azithromycin 500 mg/ Sodium 250 mls @ 125 mls/hr 09/04/22 11:51 09/04/22 15:00 Chloride IV 09/04/22 13:50 Infused ONCE ONE Infusion Iohexol 100 ml 09/04/22 12:53 09/04/22 12:53 Iohexol 350 Mg/Ml 100 Ml Infus..Btl IV 09/04/22 12:54 65 ml ONCE ONE Administration <Checo Hooks MD - Last Filed: 09/04/22 18:48> Medical Decision Making Medical Decision Making MDM Narrative: 41-year-old male who presents emergency department for evaluation of 5 days of fever, chills, anorexia, fatigue, productive cough. Patient's symptoms came on suddenly 5 days prior while he was at work. Patient was found to be hypoxic with an O2 saturation of 87% on room air. His O2 saturation improved to 93% on 2 L via nasal cannula. Patient had an elevated respiratory rate of 22 and was hypertensive with a blood pressure of 145/91. Lung exam did reveal diffuse rhonchi. The following tests were ordered: CBC, CMP, lactic acid, magnesium, COVID-19, influenza, BNP, blood cultures x2. Chest x-ray and CT scan pulmonary angiogram PE protocol will be obtained. Patient was ordered to get normal saline bolus 30 cc/kilogram based on his ideal body weight (BMI 31.6). I also ordered to get ceftriaxone 1 g IV and azithromycin 500 mg IV 1552: My interpretation of patient's laboratory evaluation as follows: WBC low 4200. Platelets low 144,000. sodium low 134. COVID-19 influenza negative. BNP below detectable limits. CT pulmonary angiogram PE protocol was negative for PE, lungs were clear with no infiltrates. The patient is feeling significantly better after normal saline bolus. At this time I do not have a clear cause for the patient's low O2 saturations. The patient will be taken off oxygen to see if he is hypoxic. 1600: Patient's O2 saturation on room air at rest went down to 88% Patient does have a significant smoking history, 1 pack per day times 30 years, I will check an ABG on the patient. 182: ABG on room air revealed an O2 saturation of 91%, pH is 7.40, pCO2 44, PO2 of 66, bicarb 27. Patient does have a low oxygen level but a normal pH and pCO2. I did walk the patient around the ER with a pulse oximetry monitor on his finger. Patient's O2 saturation dropped to 88% but never below 88%. The patient had no difficulty walking, talking and did not appear to be dyspneic. I am going to treat the patient for bronchitis/possible early pneumonia with amoxicillin 1000 mg 3 times a day for 5 days, Zithromax Z-Augie and prednisone 60 mg once a day for 5 days. The patient will need to follow-up with his PCP. I will also refer him to our caving guide on-call, Dr. Brendon verdugo <Checo Hooks MD - Last Filed: 09/04/22 18:48> Differential Diagnosis Differential Diagnoses: The differential diagnosis associated with the presentation includes <Checo Hooks MD - Last Filed: 09/04/22 18:48> Differential diagnosis includes but not limited to pneumonia, bronchitis, pulmonary embolism, emphysema, COPD <Checo Hooks MD - Last Filed: 09/04/22 18:48> Lab Data [facility] Lab Attestation statement: I reviewed the patient's lab results. <Checo Hooks MD - Last Filed: 09/04/22 18:48> Please see MDM <Checo Hooks MD - Last Filed: 09/04/22 18:48> Result Diagrams: 09/04/22 12:01 09/04/22 12:01 <KOLE Augustin - Last Filed: 09/04/22 11:31> Labs: Lab Results 09/04/22 09/04/22 09/04/22 Range/Units 06:22 12:01 12:01 WBC 4.2 L (4.8-10.8) X10*3/uL RBC 4.79 (4.60-5.80) X10*6/uL Hgb 15.7 (14.0-18.0) g/dl Hct 46.4 (42.0-52.0) % MCV 96.9 (80.0-98.0) fL MCH 32.8 (27.0-33.0) pg MCHC 33.8 (31.0-36.0) g/dl RDW 11.3 (11.0-16.0) % Plt Count 144 L (160-400) X10*3/uL MPV 10.3 (9.4-12.4) fL Immature Gran % (Auto) 0.2 (0.0-0.4) % Neut % (Auto) 55.6 (45-73) % Lymph % (Auto) 26.6 (20-40) % [place] % (Auto) 16.2 H (2-11) % Eos % (Auto) 0.7 (0-4) % Baso % (Auto) 0.7 (0-2) % Lymph # (Auto) 1.1 L (1.2-4.9) X10*3/uL [place] # (Auto) 0.7 (0.1-1.2) X10*3/uL Eos # (Auto) 0.0 (0.0-0.4) X10*3/uL Baso # (Auto) 0.0 (0.0-0.2) X10*3/uL Abs Immat Gran (auto) 0.01 (0.00-0.03) X10*3/uL Absolute Neuts (auto) 2.3 (2.0-8.3) x10*3/uL Absolute Nucleated RBC 0.000 (0.0-0.012) X10*3/uL Nucleated RBC % (auto) 0.0 (0.0-0.2) /100WBC O2 Saturation % ABG pH at Pt Temp (7.35-7.45) ABG pCO2 at Pt Temp (32-45) mmHg ABG pO2 at Pt Temp (83-108) mmHg ABG HCO3 (22-26) mmol/L ABG Base Excess (Actual) mmol/L Sodium 134 L (135-145) mmol/L Potassium 4.4 (3.3-5.1) mmol/L Chloride 97 (96-108) mmol/L Carbon Dioxide 28 (22-29) mmol/L Anion Gap 13 (12-20) BUN 10 (9-16) mg/dL Creatinine 0.91 (0.5-1.4) mg/dL Estim Creat Clear Calc 124.0 Estimated GFR > 60 Random Glucose 109 (60-115) mg/dL Lactic Acid (0.5-2.0) mmol/L Calcium 8.7 (8.4-10.2) mg/dL Magnesium 2.1 (1.6-2.6) mg/dL Total Bilirubin 0.6 (0.0-1.0) mg/dL AST 35 (5-37) U/L ALT 52 H (0-40) U/L Alkaline Phosphatase 71 (39-117) U/L B-Natriuretic Peptide (<100) pg/mL Total Protein 6.8 (6.5-8.0) g/dL Albumin 4.1 (3.5-5.0) g/dL COVID-19 ([facility]) Negative (Negative) COVID-19 Clin Com See Note Influenza Type A ([place]) (Negative) Influenza Type B ([place]) (Negative) Influenza A & B Note 09/04/22 09/04/22 09/04/22 Range/Units 12:01 12:01 12:01 WBC (4.8-10.8) X10*3/uL RBC (4.60-5.80) X10*6/uL Hgb (14.0-18.0) g/dl Hct (42.0-52.0) % MCV (80.0-98.0) fL MCH (27.0-33.0) pg MCHC (31.0-36.0) g/dl RDW (11.0-16.0) % Plt Count (160-400) X10*3/uL MPV (9.4-12.4) fL Immature Gran % (Auto) (0.0-0.4) % Neut % (Auto) (45-73) % Lymph % (Auto) (20-40) % [place] % (Auto) (2-11) % Eos % (Auto) (0-4) % Baso % (Auto) (0-2) % Lymph # (Auto) (1.2-4.9) X10*3/uL [place] # (Auto) (0.1-1.2) X10*3/uL Eos # (Auto) (0.0-0.4) X10*3/uL Baso # (Auto) (0.0-0.2) X10*3/uL Abs Immat Gran (auto) (0.00-0.03) X10*3/uL Absolute Neuts (auto) (2.0-8.3) x10*3/uL Absolute Nucleated RBC (0.0-0.012) X10*3/uL Nucleated RBC % (auto) (0.0-0.2) /100WBC O2 Saturation % ABG pH at Pt Temp (7.35-7.45) ABG pCO2 at Pt Temp (32-45) mmHg ABG pO2 at Pt Temp (83-108) mmHg ABG HCO3 (22-26) mmol/L ABG Base Excess (Actual) mmol/L Sodium (135-145) mmol/L Potassium (3.3-5.1) mmol/L Chloride (96-108) mmol/L Carbon Dioxide (22-29) mmol/L Anion Gap (12-20) BUN (9-16) mg/dL Creatinine (0.5-1.4) mg/dL Estim Creat Clear Calc Estimated GFR Random Glucose (60-115) mg/dL Lactic Acid 0.9 (0.5-2.0) mmol/L Calcium (8.4-10.2) mg/dL Magnesium (1.6-2.6) mg/dL Total Bilirubin (0.0-1.0) mg/dL AST (5-37) U/L ALT (0-40) U/L Alkaline Phosphatase (39-117) U/L B-Natriuretic Peptide < 10 (<100) pg/mL Total Protein (6.5-8.0) g/dL Albumin (3.5-5.0) g/dL COVID-19 ([facility]) (Negative) COVID-19 Clin Com Influenza Type A ([place]) Negative (Negative) Influenza Type B ([place]) Negative (Negative) Influenza A & B Note See Note 09/04/22 09/04/22 Range/Units 16:55 17:54 WBC (4.8-10.8) X10*3/uL RBC (4.60-5.80) X10*6/uL Hgb (14.0-18.0) g/dl Hct (42.0-52.0) % MCV (80.0-98.0) fL MCH (27.0-33.0) pg MCHC (31.0-36.0) g/dl RDW (11.0-16.0) % Plt Count (160-400) X10*3/uL MPV (9.4-12.4) fL Immature Gran % (Auto) (0.0-0.4) % Neut % (Auto) (45-73) % Lymph % (Auto) (20-40) % [place] % (Auto) (2-11) % Eos % (Auto) (0-4) % Baso % (Auto) (0-2) % Lymph # (Auto) (1.2-4.9) X10*3/uL [place] # (Auto) (0.1-1.2) X10*3/uL Eos # (Auto) (0.0-0.4) X10*3/uL Baso # (Auto) (0.0-0.2) X10*3/uL Abs Immat Gran (auto) (0.00-0.03) X10*3/uL Absolute Neuts (auto) (2.0-8.3) x10*3/uL Absolute Nucleated RBC (0.0-0.012) X10*3/uL Nucleated RBC % (auto) (0.0-0.2) /100WBC O2 Saturation 53.0 91.0 % ABG pH at Pt Temp 7.35 7.40 (7.35-7.45) ABG pCO2 at Pt Temp 51 H 44 (32-45) mmHg ABG pO2 at Pt Temp 34 L* 66 L (83-108) mmHg ABG HCO3 29 H 27 H (22-26) mmol/L ABG Base Excess (Actual) 2.7 2.4 mmol/L Sodium (135-145) mmol/L Potassium (3.3-5.1) mmol/L Chloride (96-108) mmol/L Carbon Dioxide (22-29) mmol/L Anion Gap (12-20) BUN (9-16) mg/dL Creatinine (0.5-1.4) mg/dL Estim Creat Clear Calc Estimated GFR Random Glucose (60-115) mg/dL Lactic Acid (0.5-2.0) mmol/L Calcium (8.4-10.2) mg/dL Magnesium (1.6-2.6) mg/dL Total Bilirubin (0.0-1.0) mg/dL AST (5-37) U/L ALT (0-40) U/L Alkaline Phosphatase (39-117) U/L B-Natriuretic Peptide (<100) pg/mL Total Protein (6.5-8.0) g/dL Albumin (3.5-5.0) g/dL COVID-19 ([facility]) (Negative) COVID-19 Clin Com Influenza Type A ([place]) (Negative) Influenza Type B ([place]) (Negative) Influenza A & B Note <KOLE Augustin - Last Filed: 09/04/22 11:31> Lab Results 09/04/22 09/04/22 09/04/22 Range/Units 06:22 12:01 12:01 WBC 4.2 L (4.8-10.8) X10*3/uL RBC 4.79 (4.60-5.80) X10*6/uL Hgb 15.7 (14.0-18.0) g/dl Hct 46.4 (42.0-52.0) % MCV 96.9 (80.0-98.0) fL MCH 32.8 (27.0-33.0) pg MCHC 33.8 (31.0-36.0) g/dl RDW 11.3 (11.0-16.0) % Plt Count 144 L (160-400) X10*3/uL MPV 10.3 (9.4-12.4) fL Immature Gran % (Auto) 0.2 (0.0-0.4) % Neut % (Auto) 55.6 (45-73) % Lymph % (Auto) 26.6 (20-40) % [place] % (Auto) 16.2 H (2-11) % Eos % (Auto) 0.7 (0-4) % Baso % (Auto) 0.7 (0-2) % Lymph # (Auto) 1.1 L (1.2-4.9) X10*3/uL [place] # (Auto) 0.7 (0.1-1.2) X10*3/uL Eos # (Auto) 0.0 (0.0-0.4) X10*3/uL Baso # (Auto) 0.0 (0.0-0.2) X10*3/uL Abs Immat Gran (auto) 0.01 (0.00-0.03) X10*3/uL Absolute Neuts (auto) 2.3 (2.0-8.3) x10*3/uL Absolute Nucleated RBC 0.000 (0.0-0.012) X10*3/uL Nucleated RBC % (auto) 0.0 (0.0-0.2) /100WBC O2 Saturation % ABG pH at Pt Temp (7.35-7.45) ABG pCO2 at Pt Temp (32-45) mmHg ABG pO2 at Pt Temp (83-108) mmHg ABG HCO3 (22-26) mmol/L ABG Base Excess (Actual) mmol/L Sodium 134 L (135-145) mmol/L Potassium 4.4 (3.3-5.1) mmol/L Chloride 97 (96-108) mmol/L Carbon Dioxide 28 (22-29) mmol/L Anion Gap 13 (12-20) BUN 10 (9-16) mg/dL Creatinine 0.91 (0.5-1.4) mg/dL Estim Creat Clear Calc 124.0 Estimated GFR > 60 Random Glucose 109 (60-115) mg/dL Lactic Acid (0.5-2.0) mmol/L Calcium 8.7 (8.4-10.2) mg/dL Magnesium 2.1 (1.6-2.6) mg/dL Total Bilirubin 0.6 (0.0-1.0) mg/dL AST 35 (5-37) U/L ALT 52 H (0-40) U/L Alkaline Phosphatase 71 (39-117) U/L B-Natriuretic Peptide (<100) pg/mL Total Protein 6.8 (6.5-8.0) g/dL Albumin 4.1 (3.5-5.0) g/dL COVID-19 ([facility]) Negative (Negative) COVID-19 Clin Com See Note Influenza Type A ([place]) (Negative) Influenza Type B ([place]) (Negative) Influenza A & B Note 09/04/22 09/04/22 09/04/22 Range/Units 12:01 12:01 12:01 WBC (4.8-10.8) X10*3/uL RBC (4.60-5.80) X10*6/uL Hgb (14.0-18.0) g/dl Hct (42.0-52.0) % MCV (80.0-98.0) fL MCH (27.0-33.0) pg MCHC (31.0-36.0) g/dl RDW (11.0-16.0) % Plt Count (160-400) X10*3/uL MPV (9.4-12.4) fL Immature Gran % (Auto) (0.0-0.4) % Neut % (Auto) (45-73) % Lymph % (Auto) (20-40) % [place] % (Auto) (2-11) % Eos % (Auto) (0-4) % Baso % (Auto) (0-2) % Lymph # (Auto) (1.2-4.9) X10*3/uL [place] # (Auto) (0.1-1.2) X10*3/uL Eos # (Auto) (0.0-0.4) X10*3/uL Baso # (Auto) (0.0-0.2) X10*3/uL Abs Immat Gran (auto) (0.00-0.03) X10*3/uL Absolute Neuts (auto) (2.0-8.3) x10*3/uL Absolute Nucleated RBC (0.0-0.012) X10*3/uL Nucleated RBC % (auto) (0.0-0.2) /100WBC O2 Saturation % ABG pH at Pt Temp (7.35-7.45) ABG pCO2 at Pt Temp (32-45) mmHg ABG pO2 at Pt Temp (83-108) mmHg ABG HCO3 (22-26) mmol/L ABG Base Excess (Actual) mmol/L Sodium (135-145) mmol/L Potassium (3.3-5.1) mmol/L Chloride (96-108) mmol/L Carbon Dioxide (22-29) mmol/L Anion Gap (12-20) BUN (9-16) mg/dL Creatinine (0.5-1.4) mg/dL Estim Creat Clear Calc Estimated GFR Random Glucose (60-115) mg/dL Lactic Acid 0.9 (0.5-2.0) mmol/L Calcium (8.4-10.2) mg/dL Magnesium (1.6-2.6) mg/dL Total Bilirubin (0.0-1.0) mg/dL AST (5-37) U/L ALT (0-40) U/L Alkaline Phosphatase (39-117) U/L B-Natriuretic Peptide < 10 (<100) pg/mL Total Protein (6.5-8.0) g/dL Albumin (3.5-5.0) g/dL COVID-19 ([facility]) (Negative) COVID-19 Clin Com Influenza Type A ([place]) Negative (Negative) Influenza Type B ([place]) Negative (Negative) Influenza A & B Note See Note 09/04/22 09/04/22 Range/Units 16:55 17:54 WBC (4.8-10.8) X10*3/uL RBC (4.60-5.80) X10*6/uL Hgb (14.0-18.0) g/dl Hct (42.0-52.0) % MCV (80.0-98.0) fL MCH (27.0-33.0) pg MCHC (31.0-36.0) g/dl RDW (11.0-16.0) % Plt Count (160-400) X10*3/uL MPV (9.4-12.4) fL Immature Gran % (Auto) (0.0-0.4) % Neut % (Auto) (45-73) % Lymph % (Auto) (20-40) % [place] % (Auto) (2-11) % Eos % (Auto) (0-4) % Baso % (Auto) (0-2) % Lymph # (Auto) (1.2-4.9) X10*3/uL [place] # (Auto) (0.1-1.2) X10*3/uL Eos # (Auto) (0.0-0.4) X10*3/uL Baso # (Auto) (0.0-0.2) X10*3/uL Abs Immat Gran (auto) (0.00-0.03) X10*3/uL Absolute Neuts (auto) (2.0-8.3) x10*3/uL Absolute Nucleated RBC (0.0-0.012) X10*3/uL Nucleated RBC % (auto) (0.0-0.2) /100WBC O2 Saturation 53.0 91.0 % ABG pH at Pt Temp 7.35 7.40 (7.35-7.45) ABG pCO2 at Pt Temp 51 H 44 (32-45) mmHg ABG pO2 at Pt Temp 34 L* 66 L (83-108) mmHg ABG HCO3 29 H 27 H (22-26) mmol/L ABG Base Excess (Actual) 2.7 2.4 mmol/L Sodium (135-145) mmol/L Potassium (3.3-5.1) mmol/L Chloride (96-108) mmol/L Carbon Dioxide (22-29) mmol/L Anion Gap (12-20) BUN (9-16) mg/dL Creatinine (0.5-1.4) mg/dL Estim Creat Clear Calc Estimated GFR Random Glucose (60-115) mg/dL Lactic Acid (0.5-2.0) mmol/L Calcium (8.4-10.2) mg/dL Magnesium (1.6-2.6) mg/dL Total Bilirubin (0.0-1.0) mg/dL AST (5-37) U/L ALT (0-40) U/L Alkaline Phosphatase (39-117) U/L B-Natriuretic Peptide (<100) pg/mL Total Protein (6.5-8.0) g/dL Albumin (3.5-5.0) g/dL COVID-19 ([facility]) (Negative) COVID-19 Clin Com Influenza Type A ([place]) (Negative) Influenza Type B ([place]) (Negative) Influenza A & B Note <Checo Hooks MD - Last Filed: 09/04/22 18:48> Independent Interpretation I performed an independent interpretation of an: EKG <Checo Hooks MD - Last Filed: 09/04/22 18:48> Interpretation: Twelve EKG done at 1141 was interpreted by me as follows: Normal sinus rhythm rate of 96, normal intervals, no ST segment elevation, no ST segment depression, no PACs, no PVCs. This is a normal EKG <Checo Hooks MD - Last Filed: 09/04/22 18:48> Discharge Plan Discharge Clinical Impression: Acute bronchitis, Hypoxia, Tobacco use disorder <KOLE Augustin - Last Filed: 09/04/22 11:31> Patient Disposition: Home, Self-Care <KOLE Augustin - Last Filed: 09/04/22 11:31> Instructions: Acute Bronchitis (ED) <KOLE Augustin - Last Filed: 09/04/22 11:31> Additional Instructions: Your CT pulmonary angiogram pulmonary embolism protocol did not reveal any blood clots in your lungs or any evidence for pneumonia. Your O2 saturation was 88% on room air, normally this is 96-100%. This low O2 saturation suggests that your having difficulty getting oxygen to your lungs and this is most likely related to your smoking a possibly caused by bronchitis or early pneumonia. Your blood gas also revealed a low blood oxygen level. You need to stop smoking cigarettes Take amoxicillin 500 mg pills, 2 pills, every 6 hours (3 times a day) for 5 days. Take Zithromax (azithromycin) Z-Augie as prescribed. Day 1 take 2 pills, each day after that take 1 pill for total of 5 days. This medication states in your system for 7-10 days and continues to work despite only taking it for 5 days. Take prednisone 20 mg pills, 3 pills once a day for 5 days. While you are taking prednisone, do not take any NSAIDs (Motrin, Advil, ibuprofen, Aleve, naproxen). Follow-up with your doctor in 2 days. Please return to the emergency department if your symptoms get worse or if you develop any symptoms that are concerning to you. Please see work note Please call our caving guide on-call, Dr. Benson to see if he can follow you up as an outpatient <KOLE Augustin - Last Filed: 09/04/22 11:31> Prescriptions: New amoxicillin 500 mg capsule 1,000 mg PO TID 5 Days Qty: 30 0RF azithromycin [Zithromax Z-Augie] 250 mg tablet See Rx Instructions .ROUTE .COMPLEX Qty: 6 0RF Rx Instructions: take 500 mg today (day 1), then 250 mg for 4 days (days 2-5) prednisone 20 mg tablet 60 mg PO DAILY 5 Days Qty: 15 0RF No Action prednisone 20 mg tablet 40 mg PO DAILY Qty: 10 0RF ibuprofen 600 mg tablet 600 mg PO Q6H PRN (Reason: pain) Qty: 30 0RF albuterol sulfate [ProAir HFA] 90 mcg/actuation HFA aerosol inhaler 2 puff inhalation Q4-6H PRN (Reason: Wheezing) Qty: 8.5 0RF ibuprofen 600 mg tablet 600 mg PO Q6H PRN (Reason: pain) Qty: 30 0RF doxycycline hyclate 100 mg tablet 100 mg PO Q12H 10 Days Qty: 20 0RF <KOLE Augustin - Last Filed: 09/04/22 11:31> Referrals: Yaakov Benson MD [Physician] - 2 weeks (Hypoxic, tobacco use disorder) <KOLE Augustin - Last Filed: 09/04/22 11:31> Stand Alone Forms: Work/School Release <KOLE Augustin - Last Filed: 09/04/22 11:31>
--- NOTE | 2022-09-04 11:31 | ECG_ITS ---
Test Reason : SOB Blood Pressure : / mmHG Vent. Rate : 096 BPM Atrial Rate : 096 BPM P-R Int : 138 ms QRS Dur : 080 ms QT Int : 342 ms P-R-T Axes : 062 072 051 degrees QTc Int : 432 ms Normal sinus rhythm Normal ECG When compared with ECG of 07-MAY-2022 01:15, No significant change was found Referred By: Stefan Johns Electronically Signed By:Kenton Gordillo
--- NOTE | 2022-09-04 11:45 | PC.NURSE ---
pt alert and oriented, skin slightly warm to touch, respirations even and unlabored, ls wheezing in bilateral bases, pt reports having a headache and cough since saturday, also feeling general weak and poor po intake-dry heaving and no appetite, chills on and off and cold sweats. normal sinus on the monitor.
[2022-09-04] MEDS: 0.9 % Sodium Chloride 2,190 ML 2190 ML IV (11:58)
[2022-09-04] MEDS: cefTRIAXone sodium 1 GM in 0.9 % Sodium Chloride 50 ML IV (12:06)
[2022-09-04 12:14] LABS: MANUAL DIFF FLAG NO
[2022-09-04 12:17] LABS: Basophils Percent Auto 0.7 % (0-2); Eosinophils Percent Auto 0.7 % (0-4); Hematocrit 46.4 % (42.0-52.0); Hemoglobin 15.7 g/dl (14.0-18.0); Imm Gran Abs Auto 0.01 X10*3/uL (0.00-0.03); Imm Gran Pct Auto 0.2 % (0.0-0.4); Lymphocytes Absolute Auto 1.1 X10*3/uL (1.2-4.9); Lymphocytes Percent Auto 26.6 % (20-40); Mean Corpuscular HGB Conc 33.8 g/dl (31.0-36.0); Mean Corpuscular Hemoglobin 32.8 pg (27.0-33.0); Mean Corpuscular Volume 96.9 fL (80.0-98.0); Mean Platelet Volume 10.3 fL (9.4-12.4); Monocytes Absolute Auto 0.7 X10*3/uL (0.1-1.2); Monocytes Percent Auto 16.2 % (2-11); Neutrophils Absolute Auto 2.3 x10*3/uL (2.0-8.3); Neutrophils Percent Auto 55.6 % (45-73); Platelet Count 144 X10*3/uL (160-400); Red Blood Count 4.79 X10*6/uL (4.60-5.80); Red Cell Distribution Width 11.3 % (11.0-16.0); White Blood Count 4.2 X10*3/uL (4.8-10.8)
[2022-09-04 12:28] LABS: Lactic Acid 0.9 mmol/L (0.5-2.0)
[2022-09-04 12:30] LABS: IDNOW Serial# 9DB6401D; Influenza A Negative (Negative); Influenza B2 Negative (Negative)
[2022-09-04 12:30] LABS: COVID-19 Test Negative (Negative); IDNOW Serial# BCCEAD1C
[2022-09-04 12:34] LABS: Alanine Aminotransferase 52 U/L (0-40); Albumin Level 4.1 g/dL (3.5-5.0); Alkaline Phosphatase 71 U/L (39-117); Anion Gap 13 (12-20); Aspartate Amino Transferase 35 U/L (5-37); Bilirubin Total 0.6 mg/dL (0.0-1.0); Blood Urea Nitrogen 10 mg/dL (9-16); Calcium 8.7 mg/dL (8.4-10.2); Carbon Dioxide 28 mmol/L (22-29); Chloride 97 mmol/L (96-108); Estimated Glomerular Filt Rate > 60; Glucose Random 109 mg/dL (60-115); Magnesium 2.1 mg/dL (1.6-2.6); Potassium 4.4 mmol/L (3.3-5.1); Sodium 134 mmol/L (135-145); Total Protein 6.8 g/dL (6.5-8.0)
[2022-09-04 12:38] LABS: B Type Natriuretic Peptide < 10 pg/mL (<100)
[2022-09-04] MEDS: iohexoL 350 MG/ML 100 ML INFUS..BTL IV (12:53)
[2022-09-04] MEDS: Azithromycin 500 MG in 0.9 % Sodium Chloride 250 ML 125 MG IV (12:55)
--- NOTE | 2022-09-04 13:07 | PC.NURSE ---
pt walked to ct room with oxygen, when he came back his oxygen level was 83% on room air
[2022-09-04 17:06] LABS: ABG Base Excess 2.7 mmol/L; ABG HCO3 29 mmol/L (22-26); ABG pCO2 51 mmHg (32-45); ABG pH 7.35 (7.35-7.45); ABG pO2 34 mmHg (83-108)
[2022-09-04 17:06] LABS: ABG Refer to POC result
[2022-09-04 18:02] LABS: ABG Base Excess 2.4 mmol/L; ABG HCO3 27 mmol/L (22-26); ABG pCO2 44 mmHg (32-45); ABG pO2 66 mmHg (83-108)
[2022-09-04 18:04] LABS: ABG Refer to POC result
--- NOTE | 2022-09-04 18:34 | MHC.EDTECH ---
pt said he not able to give a urine sample at this time ,because he use the bath room 3 times already .
[2022-09-04] MEDS: Azithromycin 500 MG TABLET PO (19:29)
[2022-09-04] MEDS: predniSONE 20 MG TABLET 60 MG PO (19:29)
[2022-09-04] MEDS: Amoxicillin 500 MG CAPSULE 1000 MG PO (19:29)
== END 2022-09-04 19:36 | disposition home or self-care (01) ==
PROVIDERS: Physician Assistant; Emergency Provider Emergency Medicine Emergency Medical Services
DX: J20.9 Acute bronchitis, unspecified (principal); R09.02 Hypoxemia; R06.02 Shortness of breath; Z20.822 Contact with and (suspected) exposure to COVID-19; F11.20 Opioid dependence, uncomplicated; F17.200 Nicotine dependence, unspecified, uncomplicated
CPT/HCPCS: 36415; 71275; 80053; 82803; 83605; 83735; 83880; 85025; 87040; 87502; 87635; 93005; 96361; 96374; 96375; 99284; 99285; J0456; J0696; Q9967

== ENCOUNTER 2022-09-26 23:08 | Emergency (ER) | payer OTHER, SELFPAY ==
--- NOTE | ~2022-09-26 | XR_ITS ---
EXAMINATION: XR CHEST CLINICAL INFORMATION: Respiratory symptoms. COMPARISON: 05/07/2022 TECHNIQUE: 2 views of the chest were obtained. FINDINGS: The lungs are well expanded. There is no focal consolidation, edema, or effusion. No pneumothorax. The cardiomediastinal silhouette is within normal limits. No acute osseous abnormality. XR/XR chest 2V IMPRESSION: Clear lungs.
[2022-09-26 23:36] VITALS: BP 122/82; PULSE 94; RESP 14; TEMP 36.7; O2SAT 92; BMI 34.1
[2022-09-26 23:56] LABS: COVID-19 Test Negative (Negative); IDNOW Serial# 08D9AD1C; IDNOW Serial# BCCEAD1C; Influenza A Negative (Negative); Influenza B2 Negative (Negative)
[2022-09-27 00:06] LABS: Hematocrit 44.6 % (42.0-52.0); Hemoglobin 15.1 g/dl (14.0-18.0); Mean Corpuscular HGB Conc 33.9 g/dl (31.0-36.0); Mean Corpuscular Hemoglobin 32.3 pg (27.0-33.0); Mean Corpuscular Volume 95.5 fL (80.0-98.0); Mean Platelet Volume 10.3 fL (9.4-12.4); Platelet Count 155 X10*3/uL (160-400); Red Blood Count 4.67 X10*6/uL (4.60-5.80); Red Cell Distribution Width 11.9 % (11.0-16.0); White Blood Count 6.1 X10*3/uL (4.8-10.8)
[2022-09-27 00:15] VITALS: BP 130/86; PULSE 86; RESP 18; TEMP 36.7; O2SAT 92
[2022-09-27 00:20] LABS: Alanine Aminotransferase 49 U/L (0-40); Albumin Level 4.1 g/dL (3.5-5.0); Alkaline Phosphatase 66 U/L (39-117); Anion Gap 13 (12-20); Aspartate Amino Transferase 39 U/L (5-37); Bilirubin Total 0.3 mg/dL (0.0-1.0); Blood Urea Nitrogen 13 mg/dL (9-16); Calcium 8.6 mg/dL (8.4-10.2); Carbon Dioxide 24 mmol/L (22-29); Chloride 109 mmol/L (96-108); Creatinine Clr Calc Pharmacy 139.5; Estimated Glomerular Filt Rate > 60; Glucose Random 102 mg/dL (60-115); Potassium 4.3 mmol/L (3.3-5.1); Sodium 142 mmol/L (135-145); Total Protein 6.9 g/dL (6.5-8.0)
--- NOTE | 2022-09-27 00:20 | ED_ITS ---
HPI - General Adult General Chief complaint: General Medical Stated complaint: flu like symptoms Time Seen by Provider: 09/27/22 00:11 Source: patient Mode of arrival: ambulatory Limitations: no limitations History of Present Illness HPI narrative: Patient been having cough flu-like symptoms body aches for last 3 weeks been tested for COVID negative having chills decreased appetite Related Data Previous Rx's Medication Instructions Recorded albuterol sulfate 90 mcg/actuation 2 puff inhalation Q4-6H PRN 08/30/21 aerosol inhaler (ProAir HFA) Wheezing #8.5 grams ibuprofen 600 mg tablet 600 mg PO Q6H PRN pain #30 tabs 08/30/21 prednisone 20 mg tablet 40 mg PO DAILY #10 tabs 08/30/21 doxycycline hyclate 100 mg tablet 100 mg PO Q12H 10 days #20 tabs 05/07/22 ibuprofen 600 mg tablet 600 mg PO Q6H PRN pain #30 tabs 05/07/22 amoxicillin 500 mg capsule 1,000 mg PO TID 5 days #30 caps 09/04/22 azithromycin 250 mg tablet See Rx Instructions PO .COMPLEX #6 09/04/22 (Zithromax Z-Augie) tabs prednisone 20 mg tablet 60 mg PO DAILY 5 days #15 tabs 09/04/22 ciprofloxacin HCl 500 mg tablet 500 mg PO BID #6 tabs 09/27/22 (Cipro) dicyclomine 20 mg tablet 20 mg PO QID PRN abdominal pain 09/27/22 #20 tabs ondansetron 4 mg disintegrating 4 mg PO Q6-8H PRN nausea and 09/27/22 tablet vomiting #14 tabs Allergies Allergy/AdvReac Type Severity Reaction Status Date / Time codeine [CODEINE] Allergy Intermediate MY THROAT Verified 09/04/22 11:23 AND CHEST FLOYD LOBSTER Allergy Unknown UNKNOWN Uncoded 09/04/22 11:23 SEAFOOD Allergy Unknown UNKNOWN Uncoded 09/04/22 11:23 SHELLFISH Allergy Unknown VOMITTING Uncoded 09/04/22 11:23 shellfish Allergy Unknown Swelling Uncoded 09/04/22 11:23 Review of Systems Review of Systems: Yes all other systems are reviewed and are negative PMFSH Past Medical History Medical History Hx of opioid abuse No known health problems Social History Social History Alcohol intake: current Alcohol intake frequency: a few times a month Advance Directives: No Advance Directives Information Provided: Yes Physical Exam ED Vital Signs: Vital Signs - 24 hr 09/26/22 23:36 09/27/22 00:15 Temperature 98.1 F 98.0 F Pulse Rate 94 86 Respiratory Rate 14 18 Blood Pressure 122/82 130/86 Pulse Oximetry 92 92 Oxygen Delivery Method Room Air Room Air BMI result Body Mass Index 34.1 Appearance: Alert. Oriented X3. No acute distress. ENT: Pharynx normal. Oral Mucosa moist Neck: Normal inspection. Neck supple. CVS: Normal heart rate and rhythm. Pulses normal. Respiratory: No respiratory distress. Equal air entry bilateral, no wheezing/rales/rhonchi Abdomen: Soft and nontender. Bowel sounds are present Skin: Skin warm and dry. Normal skin color. Normal skin turgor. Extremities: No lower extremity edema. No calf tenderness Neuro: Oriented X 3. Medications Administered Discontinued Medications Generic Name Dose Route Start Last Admin Trade Name Freq PRN Reason Stop Dose Admin Levofloxacin 500 mg 09/27/22 00:20 09/27/22 00:31 Levofloxacin 500 Mg Tablet PO 09/27/22 00:21 500 mg ONCE ONE Administration Loperamide HCl 2 mg 09/27/22 00:20 09/27/22 00:31 Loperamide Hcl 2 Mg Capsule PO 09/27/22 00:21 2 mg ONCE ONE Administration Ondansetron HCl 4 mg 09/27/22 00:20 09/27/22 00:31 Ondansetron Odt 4 Mg Tab.Rapdis TRANSLINGU 09/27/22 00:21 4 mg ONCE ONE Administration Medical Decision Making Lab Data [facility] Lab Attestation statement: I reviewed the patient's lab results. 09/26/22 23:48 09/26/22 23:48 Labs: Lab Results 09/26/22 09/26/22 09/26/22 Range/Units 23:36 23:36 23:48 WBC 6.1 (4.8-10.8) X10*3/uL RBC 4.67 (4.60-5.80) X10*6/uL Hgb 15.1 (14.0-18.0) g/dl Hct 44.6 (42.0-52.0) % MCV 95.5 (80.0-98.0) fL MCH 32.3 (27.0-33.0) pg MCHC 33.9 (31.0-36.0) g/dl RDW 11.9 (11.0-16.0) % Plt Count 155 L (160-400) X10*3/uL MPV 10.3 (9.4-12.4) fL Absolute Nucleated RBC 0.000 (0.0-0.012) X10*3/uL Nucleated RBC % (auto) 0.0 (0.0-0.2) /100WBC Sodium (135-145) mmol/L Potassium (3.3-5.1) mmol/L Chloride (96-108) mmol/L Carbon Dioxide (22-29) mmol/L Anion Gap (12-20) BUN (9-16) mg/dL Creatinine (0.5-1.4) mg/dL Estim Creat Clear Calc Estimated GFR Random Glucose (60-115) mg/dL Calcium (8.4-10.2) mg/dL Total Bilirubin (0.0-1.0) mg/dL AST (5-37) U/L ALT (0-40) U/L Alkaline Phosphatase (39-117) U/L Total Protein (6.5-8.0) g/dL Albumin (3.5-5.0) g/dL COVID-19 ([facility]) Negative (Negative) COVID-19 Clin Com See Note Influenza Type A ([place]) Negative (Negative) Influenza Type B ([place]) Negative (Negative) Influenza A & B Note See Note 09/26/22 Range/Units 23:48 WBC (4.8-10.8) X10*3/uL RBC (4.60-5.80) X10*6/uL Hgb (14.0-18.0) g/dl Hct (42.0-52.0) % MCV (80.0-98.0) fL MCH (27.0-33.0) pg MCHC (31.0-36.0) g/dl RDW (11.0-16.0) % Plt Count (160-400) X10*3/uL MPV (9.4-12.4) fL Absolute Nucleated RBC (0.0-0.012) X10*3/uL Nucleated RBC % (auto) (0.0-0.2) /100WBC Sodium 142 (135-145) mmol/L Potassium 4.3 (3.3-5.1) mmol/L Chloride 109 H (96-108) mmol/L Carbon Dioxide 24 (22-29) mmol/L Anion Gap 13 (12-20) BUN 13 (9-16) mg/dL Creatinine 0.84 (0.5-1.4) mg/dL Estim Creat Clear Calc 139.5 Estimated GFR > 60 Random Glucose 102 (60-115) mg/dL Calcium 8.6 (8.4-10.2) mg/dL Total Bilirubin 0.3 (0.0-1.0) mg/dL AST 39 H (5-37) U/L ALT 49 H (0-40) U/L Alkaline Phosphatase 66 (39-117) U/L Total Protein 6.9 (6.5-8.0) g/dL Albumin 4.1 (3.5-5.0) g/dL COVID-19 ([facility]) (Negative) COVID-19 Clin Com Influenza Type A ([place]) (Negative) Influenza Type B ([place]) (Negative) Influenza A & B Note Discharge Plan Discharge Clinical Impression: Gastroenteritis Patient Disposition: Home, Self-Care Instructions: Gastroenteritis (ED) Additional Instructions: Drink plenty of fluid Bedside for nausea as prescribed Bentyl for abdominal spasm and diarrhea Antibiotics as prescribed Eat lot of yogurt and take probiotic Prescriptions: New dicyclomine 20 mg tablet 20 mg PO QID PRN (Reason: abdominal pain) Qty: 20 0RF ondansetron 4 mg tablet,disintegrating 4 mg PO Q6-8H PRN (Reason: nausea and vomiting) Qty: 14 0RF ciprofloxacin HCl [Cipro] 500 mg tablet 500 mg PO BID Qty: 6 0RF No Action prednisone 20 mg tablet 40 mg PO DAILY Qty: 10 0RF ibuprofen 600 mg tablet 600 mg PO Q6H PRN (Reason: pain) Qty: 30 0RF albuterol sulfate [ProAir HFA] 90 mcg/actuation HFA aerosol inhaler 2 puff inhalation Q4-6H PRN (Reason: Wheezing) Qty: 8.5 0RF ibuprofen 600 mg tablet 600 mg PO Q6H PRN (Reason: pain) Qty: 30 0RF doxycycline hyclate 100 mg tablet 100 mg PO Q12H 10 Days Qty: 20 0RF amoxicillin 500 mg capsule 1,000 mg PO TID 5 Days Qty: 30 0RF azithromycin [Zithromax Z-Augie] 250 mg tablet See Rx Instructions .ROUTE .COMPLEX Qty: 6 0RF Rx Instructions: take 500 mg today (day 1), then 250 mg for 4 days (days 2-5) prednisone 20 mg tablet 60 mg PO DAILY 5 Days Qty: 15 0RF Stand Alone Forms: Work/School Release Interventions: ED Discharge Assessment Last Done: 09/27/22 01:26 Discharge Date/Time: 09/27/22 01:28
[2022-09-27] MEDS: Ondansetron ODT 4 MG TAB.RAPDIS TRANSLINGU (00:31)
[2022-09-27] MEDS: Loperamide HCl 2 MG CAPSULE PO (00:31)
[2022-09-27] MEDS: levoFLOXacin 500 MG TABLET PO (00:31)
== END 2022-09-27 01:28 | disposition home or self-care (01) ==
PROVIDERS: Emergency Provider Internal Medicine
DX: K52.9 Noninfective gastroenteritis and colitis, unspecified (principal); Z20.822 Contact with and (suspected) exposure to COVID-19
CPT/HCPCS: 36415; 71046; 80053; 85027; 87502; 87635; 99282; 99283

== ENCOUNTER 2023-08-07 17:00 | Emergency (ER) | payer OTHER, SELFPAY ==
[2023-08-07 17:06] VITALS: BP 171/98; PULSE 95; RESP 18; TEMP 37.1; O2SAT 95; BMI 32.5
--- NOTE | 2023-08-07 17:06 | ED.WOUNDLAC ---
HPI - Wound/Laceration General Chief Complaint: Wound/Laceration Stated Complaint: finger laceration Time Seen by Provider: 08/07/23 17:53 Source: patient Mode of arrival: ambulatory Limitations: no limitations History of Present Illness HPI narrative: 42-year-old male presents with cut to right ring finger, cut himself on glass this morning came in because started bleeding and did not seem to want to stop. Not on thinners. UTD on tetanus. No numbness or tingling. Not a diabetic. Related Data Previous Rx's Medication Instructions Recorded albuterol sulfate 90 mcg/actuation 2 puff inhalation Q4-6H PRN 08/30/21 aerosol inhaler (ProAir HFA) Wheezing #8.5 grams ibuprofen 600 mg tablet 600 mg PO Q6H PRN pain #30 tabs 08/30/21 prednisone 20 mg tablet 40 mg (2 x 20 mg) PO DAILY #10 tabs 08/30/21 doxycycline hyclate 100 mg tablet 100 mg PO Q12H 10 days #20 tabs 05/07/22 ibuprofen 600 mg tablet 600 mg PO Q6H PRN pain #30 tabs 05/07/22 amoxicillin 500 mg capsule 1,000 mg (2 x 500 mg) PO TID 5 09/04/22 days #30 caps azithromycin 250 mg tablet See Rx Instructions PO .COMPLEX #6 09/04/22 (Zithromax Z-Augie) tabs prednisone 20 mg tablet 60 mg (3 x 20 mg) PO DAILY 5 days 09/04/22 #15 tabs ciprofloxacin HCl 500 mg tablet 500 mg PO BID #6 tabs 09/27/22 (Cipro) dicyclomine 20 mg tablet 20 mg PO QID PRN abdominal pain 09/27/22 #20 tabs ondansetron 4 mg disintegrating 4 mg PO Q6-8H PRN nausea and 09/27/22 tablet vomiting #14 tabs Allergies Allergy/AdvReac Type Severity Reaction Status Date / Time codeine [CODEINE] Allergy Intermediate MY THROAT Verified 09/04/22 11:23 AND CHEST FLOYD LOBSTER Allergy Unknown UNKNOWN Uncoded 09/04/22 11:23 SEAFOOD Allergy Unknown UNKNOWN Uncoded 09/04/22 11:23 SHELLFISH Allergy Unknown VOMITTING Uncoded 09/04/22 11:23 shellfish Allergy Unknown Swelling Uncoded 04/04/23 11:23 Review of Systems Review of Systems: Constitutional : No Fever, No Chills, Cardiovascular : No Chest Pain, No SOB Respiratory : No Dyspnea Gastrointestinal : No abdominal pain Musculoskeletal : No Joint Swelling Skin : No rash, positive skin laceration Neuro : No Weakness, No Numbness Psych : No SI/HI Yes all other systems are reviewed and are negative [facility] Past Medical History Attestation statement: The following information was validated with the patient. Source: old records reviewed and nursing notes reviewed Medical History Hx of opioid abuse No known health problems Social History Social History Alcohol intake: current Alcohol intake frequency: a few times a month Advance Directives: No Advance Directives Information Provided: No Physical Exam Vital Signs: Vital Signs: Last Vital Signs Temp 98.8 F 08/07/23 17:06 Pulse 95 08/07/23 17:06 Resp 18 08/07/23 17:06 BP 171/98 H 08/07/23 17:06 Pulse Ox 95 08/07/23 17:06 O2 Del Method Room Air 08/07/23 17:06 BMI result Body Mass Index 32.5 vss Appearance: Alert.? Oriented X3.? No acute distress.? Head: Normocephalic, atraumatic, no step-offs or deformities Eyes: Pupils equal, round and reactive to light.? CVS: Normal heart rate and rhythm.? Pulses normal.? Respiratory: No respiratory distress.? Breath sounds normal.? Abdomen: Soft and nontender.? Skin: Skin warm and dry.? Normal skin color.? Normal skin turgor.?+ 2 cm linear superficial laceration to the dorsal aspect of right ring finger. No fb noted. 2+ radial pulses equal and b/l. Normal distal sensation Extremities: No lower extremity edema.? No calf ttp. 5/5 strength to bilateral upper and lower extremities Back: No midline tenderness, no C-spine tenderness, full range of motion, no CVA tenderness bilaterally Neuro: Oriented X 3.? No motor deficit.? No sensory deficit. CN 2-12 intact Course Course Course Narrative: This is a rapid medical exam: Additional HPI, ROS, PE not included below will be deferred to primary provider. Laceration from a glass niyah tray when he was trying to repair it. States it slipped and cut his right ring finger. Medical Decision Making Medical Decision Making [facility] Narrative: 42-year-old male presents with accidental cut to right ring finger came in because it was bleeding a lot however now it has not bleeding as much. Physical exam Normal skin turgor.?+ 2 cm linear superficial laceration to the dorsal aspect of right ring finger. No fb noted. 2+ radial pulses equal and b/l. Normal distal sensation History and physical exam concerning for simple laceration which will be repaired with Dermabond. No signs of foreign body. No signs of fracture, dislocation, neurovascular compromise or threat to limb. Plan will Dermabond area. Differential Diagnosis Differential Diagnoses: The differential diagnosis associated with the presentation includes History and physical exam concerning for simple laceration which will be repaired with Dermabond. No signs of foreign body. No signs of fracture, dislocation, neurovascular compromise or threat to limb. Admission/Observation Consideration of admission/observation: Escalation of care including admission/observation considered No indiaction Tests considered The following testing was considered but not selected: No pain w/ rom of fingers unlikely fracture, dislocation. Unlikely threat to limb. Discharge Plan Discharge Clinical Impression: Laceration Patient Disposition: Home, Self-Care Additional Instructions: Take your medications as prescribed. If you were prescribed antibiotics today, it is important that you take your medication to their entirety, do not skip any doses, do not finish them early. Follow-up with your primary care provider this week. Return to the emergency department with new or worsening symptoms. Such as fevers, chills, chest pain, shortness of breath, nausea, vomiting, dizziness, headache, vision changes, lethargy In case of emergency call 911 Prescriptions: No Action prednisone 20 mg tablet 40 mg PO DAILY Qty: 10 0RF ibuprofen 600 mg tablet 600 mg PO Q6H PRN (Reason: pain) Qty: 30 0RF albuterol sulfate [ProAir HFA] 90 mcg/actuation HFA aerosol inhaler 2 puff inhalation Q4-6H PRN (Reason: Wheezing) Qty: 8.5 0RF ibuprofen 600 mg tablet 600 mg PO Q6H PRN (Reason: pain) Qty: 30 0RF doxycycline hyclate 100 mg tablet 100 mg PO Q12H 10 Days Qty: 20 0RF amoxicillin 500 mg capsule 1,000 mg PO TID 5 Days Qty: 30 0RF azithromycin [Zithromax Z-Augie] 250 mg tablet See Rx Instructions .ROUTE .COMPLEX Qty: 6 0RF Rx Instructions: take 500 mg today (day 1), then 250 mg for 4 days (days 2-5) prednisone 20 mg tablet 60 mg PO DAILY 5 Days Qty: 15 0RF dicyclomine 20 mg tablet 20 mg PO QID PRN (Reason: abdominal pain) Qty: 20 0RF ondansetron 4 mg tablet,disintegrating 4 mg PO Q6-8H PRN (Reason: nausea and vomiting) Qty: 14 0RF ciprofloxacin HCl [Cipro] 500 mg tablet 500 mg PO BID Qty: 6 0RF Referrals: Physician,None [Primary Care Provider] - 3 days Stand Alone Forms: Work/School Release
== END 2023-08-07 18:46 | disposition home or self-care (01) ==
PROVIDERS: Emergency Provider Internal Medicine
DX: S61.214A Laceration without foreign body of right ring finger without damage to nail, initial encounter (principal); W25.XXXA Contact with sharp glass, initial encounter; Y93.9 Activity, unspecified; Y92.9 Unspecified place or not applicable; Y99.9 Unspecified external cause status
CPT/HCPCS: 12001; 99282

== ENCOUNTER 2024-09-24 15:19 | Emergency (ER) | payer MEDICAID, SELFPAY ==
[2024-09-24 15:23] VITALS: BP 152/95; PULSE 106; RESP 16; TEMP 36.7; O2SAT 97; BMI 37.3
--- NOTE | 2024-09-24 15:27 | ED.GENADULT ---
HPI - General Adult General Chief complaint: GI Bleed Stated complaint: blood in stool Time Seen by Provider: 09/24/24 21:36 Source: patient Mode of arrival: ambulatory Limitations: no limitations History of Present Illness ED Provider: HPI narrative: Patient no significant past medical history been having off and on rectal bleeding bright red in color especially after moving bowels for last 4-5 days patient has been having loose bowel rectal bleeding in the end of it which is also bright red stool is brownish in color no fever no chills no nausea no vomiting no significant abdominal no history of antibiotic use no history of hemorrhoids patient does not have any PCP has not seen any MD in last 2-3 years family history of colon cancer in grandfather Related Data Previous Rx's ?Medication ?Instructions ?Recorded albuterol sulfate 90 mcg/actuation 2 puff inhalation Q4-6H PRN 08/30/21 aerosol inhaler (ProAir HFA) Wheezing #8.5 grams ibuprofen 600 mg tablet 600 mg PO Q6H PRN pain #30 tabs 08/30/21 prednisone 20 mg tablet 40 mg (2 x 20 mg) PO DAILY #10 tabs 08/30/21 doxycycline hyclate 100 mg tablet 100 mg PO Q12H 10 days #20 tabs 05/07/22 ibuprofen 600 mg tablet 600 mg PO Q6H PRN pain #30 tabs 05/07/22 amoxicillin 500 mg capsule 1,000 mg (2 x 500 mg) PO TID 5 09/04/22 days #30 caps azithromycin 250 mg tablet See Rx Instructions PO .COMPLEX #6 09/04/22 (Zithromax Z-Augie) tabs prednisone 20 mg tablet 60 mg (3 x 20 mg) PO DAILY 5 days 09/04/22 #15 tabs ciprofloxacin HCl 500 mg tablet 500 mg PO BID #6 tabs 09/27/22 (Cipro) dicyclomine 20 mg tablet 20 mg PO QID PRN abdominal pain 09/27/22 #20 tabs ondansetron 4 mg disintegrating 4 mg PO Q6-8H PRN nausea and 09/27/22 tablet vomiting #14 tabs dicyclomine 20 mg tablet 20 mg PO QID PRN abdominal pain 09/24/24 #14 tabs hydrocortisone acetate 25 mg 25 mg OH BID #12 ea 09/24/24 rectal suppository (Anusol-HC) losartan 50 mg-hydrochlorothiazide 1 tab PO DAILY #90 tabs 09/24/24 12.5 mg tablet Allergies Allergy/AdvReac Type Severity Reaction Status Date / Time codeine [CODEINE] Allergy Intermediate MY THROAT Verified 09/24/24 15:28 AND CHEST FLOYD LOBSTER Allergy Unknown UNKNOWN Uncoded 09/04/22 11:23 SEAFOOD Allergy Unknown UNKNOWN Uncoded 09/04/22 11:23 SHELLFISH Allergy Unknown VOMITTING Uncoded 09/04/22 11:23 shellfish Allergy Unknown Swelling Uncoded 09/04/22 11:23 Review of Systems Review of Systems: Yes all other systems are reviewed and are negative [facility] Past Medical History Medical History Hx of opioid abuse No known health problems Social History Social History Alcohol intake: current Alcohol intake frequency: 0-2 drinks per day Alcohol type: beer Smoked in Last 30 Days: Yes Use of substances other than those prescribed or required for medical reasons: No Advance Directives: No Advance Directives Information Provided: No Do you have a plan to hurt others: No Plan Physical Exam ED Vital Signs: Vital Signs - 24 hr 09/24/24 15:23 09/24/24 20:11 09/24/24 21:47 Temperature 98.0 F 97.6 F 98.1 F Pulse Rate 106 H 98 98 Respiratory Rate 16 16 16 Blood Pressure 152/95 H 167/107 H 185/105 H Pulse Oximetry 97 96 98 Oxygen Delivery Method Room Air Room Air Room Air 09/24/24 22:03 Temperature Pulse Rate 84 Respiratory Rate Blood Pressure 147/102 H Pulse Oximetry Oxygen Delivery Method BMI result Body Mass Index 37.3 Appearance: Alert. Oriented X3. No acute distress. Eyes: PERRLA, No Nystagmus no pallor or icterus ENT: Pharynx normal. Oral Mucosa moist Neck: Normal inspection. Neck supple. CVS: Normal heart rate and rhythm. Pulses normal. Respiratory: No respiratory distress. Equal air entry bilateral, no wheezing/rales/rhonchi Abdomen: Soft and diffuse discomfort Bowel sounds are present, no mass palpable, no CVA tenderness Rectum: Internal hemorrhoids palpable tender , no active bleeding Skin: Skin warm and dry. Normal skin color. Normal skin turgor. Extremities: No lower extremity edema. No calf tenderness Neuro: Oriented X 3. No motor deficit. No sensory deficit.No cerebellar signs , cranial nerves II-XII intact Course Course Course Narrative: This is a Rapid Medical Exam performed in triage by Angie Valentino PA-C. Full HPI, ROS and PE to be performed by primary ED provider. 43-year-old male presenting to the ED c/o bloody stool x2 months, worsening today. +diarrhea, with mild rectal pain, +dizziness/fatigue, denies AC use, abdominal pain PE: nontoxic appearing, VSS Plan: Labs, UA, occult stool Medical Decision Making Medical Decision Making [facility] Narrative: Patient with rectal bleed likely from hemorrhoids patient is going on for last several weeks. Will prescribe Anusol suppository also patient noted to be hypotensive patient does not know whether he has a high blood pressure not as he has not seen the PCP last few years multiple times blood pressure was checked which was elevated will start patient on losartan Differential Diagnosis Differential Diagnoses: The differential diagnosis associated with the presentation includes Lab Data [facility] Lab Attestation statement: I reviewed the patient's lab results. 09/24/24 16:45 09/24/24 16:45 Labs: Lab Results 09/24/24 09/24/24 Range/Units 16:45 20:46 WBC 7.5 (4.8-10.8) X10*3/uL RBC 4.86 (4.60-5.80) X10*6/uL Hgb 16.6 (14.0-18.0) g/dl Hct 47.8 (42.0-52.0) % MCV 98.4 H (80.0-98.0) fL MCH 34.2 H (27.0-33.0) pg MCHC 34.7 (31.0-36.0) g/dl RDW 12.3 (11.0-16.0) % Plt Count 192 (160-400) X10*3/uL MPV 10.0 (9.4-12.4) fL Immature Gran % (Auto) 0.3 (0.0-0.4) % Neut % (Auto) 63.6 (45-73) % Lymph % (Auto) 25.5 (20-40) % Mckenzie % (Auto) 7.6 (2-11) % Eos % (Auto) 2.5 (0-4) % Baso % (Auto) 0.5 (0-2) % Lymph # (Auto) 1.9 (1.2-4.9) X10*3/uL Mckenzie # (Auto) 0.6 (0.1-1.2) X10*3/uL Eos # (Auto) 0.2 (0.0-0.4) X10*3/uL Baso # (Auto) 0.0 (0.0-0.2) X10*3/uL Abs Immat Gran (auto) 0.02 (0.00-0.03) X10*3/uL Absolute Neuts (auto) 4.8 (2.0-8.3) x10*3/uL Absolute Nucleated RBC 0.000 (0.0-0.012) X10*3/uL Nucleated RBC % (auto) 0.0 (0.0-0.2) /100WBC Sodium 140 (135-145) mmol/L Potassium 3.9 (3.3-5.1) mmol/L Chloride 106 (96-108) mmol/L Carbon Dioxide 25 (22-29) mmol/L Anion Gap 13 (12-20) BUN 13 (9-16) mg/dL Creatinine 0.80 (0.5-1.4) mg/dL Estim Creat Clear Calc 150.0 Estimated GFR > 60 Random Glucose 123 H (60-115) mg/dL Calcium 9.4 D (8.4-10.2) mg/dL Magnesium 2.2 (1.6-2.6) mg/dL Total Bilirubin 0.3 (0.0-1.0) mg/dL Direct Bilirubin 0.1 (0.0-0.5) mg/dL AST 55 H (5-37) U/L ALT 71 H (0-40) U/L Alkaline Phosphatase 92 (39-117) U/L Total Protein 7.6 (6.5-8.0) g/dL Albumin 4.3 (3.5-5.0) g/dL Lipase 42 (8-78) U/L Urine Color Dark Yellow Urine Appearance Clear Urine pH 5.5 (5.0-9.0) Ur Specific [place] 1.025 (1.005-1.025) Urine Protein Trace (Neg-Trace) mg/dL Urine Glucose (UA) Negative (Negative) mg/dL Urine Ketones Trace (Negative) mg/dL Urine Blood Negative (Negative) Urine Nitrite Negative (Negative) Ur Leukocyte Esterase Negative (Negative) Discharge Plan Discharge Clinical Impression: Hemorrhoids, Enteritis, Hypertension Patient Disposition: Home, Self-Care Instructions: Hemorrhoids (ED), Hypertension (ED), Enteritis (ED) Additional Instructions: Your rectal bleeding is likely from hemorrhoids Take medication for abdominal cramps and diarrhea as prescribed Suppository twice a day for likely hemorrhoids Follow up with your PCP for further management including colonoscopy It is noted at your blood pressure was elevated Decrease salt intake Start taking blood pressure medication losartan 1 tablet daily Check blood pressure before taking the medicine and before going to the bed normal blood pressure should be less than 135/85 Follow up with your PCP Prescriptions: New hydrocortisone acetate [Anusol-HC] 25 mg suppository 25 mg OH BID Qty: 12 0RF dicyclomine 20 mg tablet 20 mg PO QID PRN (Reason: abdominal pain) Qty: 14 0RF losartan-hydrochlorothiazide 50-12.5 mg tablet 1 tab PO DAILY Qty: 90 0RF No Action prednisone 20 mg tablet 40 mg PO DAILY Qty: 10 0RF ibuprofen 600 mg tablet 600 mg PO Q6H PRN (Reason: pain) Qty: 30 0RF albuterol sulfate [ProAir HFA] 90 mcg/actuation HFA aerosol inhaler 2 puff inhalation Q4-6H PRN (Reason: Wheezing) Qty: 8.5 0RF ibuprofen 600 mg tablet 600 mg PO Q6H PRN (Reason: pain) Qty: 30 0RF doxycycline hyclate 100 mg tablet 100 mg PO Q12H 10 Days Qty: 20 0RF amoxicillin 500 mg capsule 1,000 mg PO TID 5 Days Qty: 30 0RF azithromycin [Zithromax Z-Augie] 250 mg tablet See Rx Instructions .ROUTE .COMPLEX Qty: 6 0RF Rx Instructions: take 500 mg today (day 1), then 250 mg for 4 days (days 2-5) prednisone 20 mg tablet 60 mg PO DAILY 5 Days Qty: 15 0RF dicyclomine 20 mg tablet 20 mg PO QID PRN (Reason: abdominal pain) Qty: 20 0RF ondansetron 4 mg tablet,disintegrating 4 mg PO Q6-8H PRN (Reason: nausea and vomiting) Qty: 14 0RF ciprofloxacin HCl [Cipro] 500 mg tablet 500 mg PO BID Qty: 6 0RF Print Language: Pashto
[2024-09-24 16:49] LABS: MANUAL DIFF FLAG NO
[2024-09-24 16:56] LABS: Basophils Percent Auto 0.5 % (0-2); Eosinophils Absolute Auto 0.2 X10*3/uL (0.0-0.4); Eosinophils Percent Auto 2.5 % (0-4); Hematocrit 47.8 % (42.0-52.0); Hemoglobin 16.6 g/dl (14.0-18.0); Imm Gran Abs Auto 0.02 X10*3/uL (0.00-0.03); Imm Gran Pct Auto 0.3 % (0.0-0.4); Lymphocytes Absolute Auto 1.9 X10*3/uL (1.2-4.9); Lymphocytes Percent Auto 25.5 % (20-40); Mean Corpuscular HGB Conc 34.7 g/dl (31.0-36.0); Mean Corpuscular Hemoglobin 34.2 pg (27.0-33.0); Mean Corpuscular Volume 98.4 fL (80.0-98.0); Monocytes Absolute Auto 0.6 X10*3/uL (0.1-1.2); Monocytes Percent Auto 7.6 % (2-11); Neutrophils Absolute Auto 4.8 x10*3/uL (2.0-8.3); Neutrophils Percent Auto 63.6 % (45-73); Platelet Count 192 X10*3/uL (160-400); Red Blood Count 4.86 X10*6/uL (4.60-5.80); Red Cell Distribution Width 12.3 % (11.0-16.0); White Blood Count 7.5 X10*3/uL (4.8-10.8)
[2024-09-24 17:12] LABS: Alanine Aminotransferase 71 U/L (0-40); Albumin Level 4.3 g/dL (3.5-5.0); Alkaline Phosphatase 92 U/L (39-117); Anion Gap 13 (12-20); Aspartate Amino Transferase 55 U/L (5-37); Bilirubin Direct 0.1 mg/dL (0.0-0.5); Bilirubin Total 0.3 mg/dL (0.0-1.0); Blood Urea Nitrogen 13 mg/dL (9-16); Calcium 9.4 mg/dL (8.4-10.2); Carbon Dioxide 25 mmol/L (22-29); Chloride 106 mmol/L (96-108); Estimated Glomerular Filt Rate > 60; Glucose Random 123 mg/dL (60-115); Lipase 42 U/L (8-78); Magnesium 2.2 mg/dL (1.6-2.6); Potassium 3.9 mmol/L (3.3-5.1); Sodium 140 mmol/L (135-145); Total Protein 7.6 g/dL (6.5-8.0)
[2024-09-24 20:11] VITALS: BP 167/107; PULSE 98; RESP 16; TEMP 36.4; O2SAT 96
[2024-09-24 20:54] LABS: Appearance Urine Clear; Color Urine Dark Yellow; Glucose Urine UA Negative (Negative); Leukocyte Esterase Urine Negative (Negative); Nitrite Urine Negative (Negative); PH 5.5 (5.0-9.0); Specific Gravity - Urine 1.025 (1.005-1.025); Urine Blood Negative (Negative); Urine Ketones Trace mg/dL (Negative); Urine Protein Trace mg/dL (Neg-Trace)
[2024-09-24 21:47] VITALS: BP 185/105; PULSE 98; RESP 16; TEMP 36.7; O2SAT 98
--- NOTE | 2024-09-24 22:00 | PC.NURSE ---
provider made aware of high bps. Will take additional reading. provider to speak to patient.
[2024-09-24 22:03] VITALS: BP 147/102; PULSE 84
[2024-09-24] MEDS: Losartan Potassium 50 MG TABLET PO (22:14)
[2024-09-24] MEDS: Dicyclomine HCl 10 MG CAPSULE 20 MG PO (22:14)
[2024-09-24 22:20] VITALS: BP 147/102; PULSE 84; RESP 16; TEMP 36.7; O2SAT 97
== END 2024-09-24 22:21 | disposition home or self-care (01) ==
PROVIDERS: Physician Assistant; Emergency Provider Internal Medicine
DX: K64.8 Other hemorrhoids (principal); K52.9 Noninfective gastroenteritis and colitis, unspecified; I10 Essential (primary) hypertension
CPT/HCPCS: 36415; 80048; 80076; 81003; 83690; 83735; 85025; 99283; 99284

== ENCOUNTER 2024-09-30 23:02 | Observation (INO) | payer MEDICAID, SELFPAY ==
--- NOTE | ~2024-09-30 | CT_ITS ---
CLINICAL HISTORY: Shortness of breath, dyspnea on exertion, rule out CTA CHEST WITH CONTRAST AND 3D POST PROCESSING COMPARISON: 09/04/2022. FINDINGS: Sagittal and coronal MIP 3D reconstruction images were performed. Exam is mildly limited due to the timing of the contrast bolus. No definite evidence of a pulmonary embolism. Cardiac size is within normal limits. Thoracic aorta is partially obscured by motion/streak artifact. There is borderline aneurysmal dilatation of the ascending thoracic aorta, estimated to measure 4 cm in transverse dimension on coronal image 47. This does not appear to be significantly changed. No evidence of a rupture. No definite dissection. No evidence of a pneumothorax or pneumomediastinum. Mild emphysematous changes are again noted within the lung apices. No focal infiltrate or consolidation. No pleural effusion or lymphadenopathy. Fatty liver is again noted, this is partially visualized. Bone windows demonstrate no acute abnormalities. IMPRESSION: 1. No definite pulmonary embolism. 2. 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 No evidence of a rupture. No definite dissection. Follow-up is advised. 3. No acute infiltrate or pleural effusion. 4. Fatty liver is partially visualized. This document has been electronically signed by: Edmond Mondragon M.D. on 10/01/2024 04:46:54
[2024-09-30 23:05] VITALS: BP 147/103; PULSE 100; RESP 17; TEMP 36.3; O2SAT 98; BMI 37.4
[2024-09-30 23:17] LABS: MANUAL DIFF FLAG NO
[2024-09-30 23:24] LABS: Basophils Percent Auto 0.5 % (0-2); Eosinophils Absolute Auto 0.2 X10*3/uL (0.0-0.4); Hematocrit 44.3 % (42.0-52.0); Hemoglobin 15.2 g/dl (14.0-18.0); Imm Gran Abs Auto 0.04 X10*3/uL (0.00-0.03); Imm Gran Pct Auto 0.5 % (0.0-0.4); Lymphocytes Absolute Auto 2.4 X10*3/uL (1.2-4.9); Lymphocytes Percent Auto 28.2 % (20-40); Mean Corpuscular HGB Conc 34.3 g/dl (31.0-36.0); Mean Corpuscular Hemoglobin 33.8 pg (27.0-33.0); Mean Corpuscular Volume 98.4 fL (80.0-98.0); Mean Platelet Volume 10.2 fL (9.4-12.4); Monocytes Absolute Auto 0.7 X10*3/uL (0.1-1.2); Monocytes Percent Auto 8.5 % (2-11); Neutrophils Absolute Auto 5.2 x10*3/uL (2.0-8.3); Neutrophils Percent Auto 60.3 % (45-73); Platelet Count 178 X10*3/uL (160-400); Red Cell Distribution Width 12.3 % (11.0-16.0); White Blood Count 8.6 X10*3/uL (4.8-10.8)
[2024-09-30 23:37] LABS: Albumin Level 4.1 g/dL (3.5-5.0); Alkaline Phosphatase 85 U/L (39-117); Anion Gap 12 (12-20); Aspartate Amino Transferase 50 U/L (5-37); Bilirubin Total 0.3 mg/dL (0.0-1.0); Blood Urea Nitrogen 15 mg/dL (9-16); Calcium 9.1 mg/dL (8.4-10.2); Carbon Dioxide 28 mmol/L (22-29); Chloride 105 mmol/L (96-108); Creatinine Clr Calc Pharmacy 146.6; Estimated Glomerular Filt Rate > 60; Glucose Random 122 mg/dL (60-115); Lipase 59 U/L (8-78); Potassium 3.8 mmol/L (3.3-5.1); Sodium 141 mmol/L (135-145)
[2024-09-30 23:43] VITALS: BP 142/96; PULSE 98; RESP 17; TEMP 36.8; O2SAT 94
--- NOTE | 2024-09-30 23:45 | MHC.EDTECH ---
at this time this tech changed over the pt into hospital gown and placed on awake overnight monitor, VS taken and relatively stable, call light given for safety
[2024-09-30 23:50] LABS: Alanine Aminotransferase 82 U/L (0-40)
[2024-10-01] VITALS (12 sets, daily range): BP systolic 125–160; BP diastolic 52–99; PULSE 72–91; RESP 16–24; TEMP 36.6–36.7; O2SAT 93–100
--- NOTE | 2024-10-01 | CA_ITS ---
Acquisition Time: 2024-10-02 09:04:04 Total Exercise Time: 00:06:12 Test Indications: Pre-Op Evaluation,Dyspnea Medications: Protocol: [place] Max HR: 150 BPM 85% of Pred: 175 BPM Max BP: 178/94 mmHG Max Work Load: 7.2 METS Exercise stress test with exercise 6 mins 12 secs of [place] Protocol, achieving 86% MPHR, METS 7.2%, with reports of SOB, no chest pain, with isolated PVCs, with normotensive response to exercise. Without EKG changes meeting criteria for ischemia. In recovery, breathing slowly improved to baseline. Test reviewed with Dr. Gordillo. Referred By: Kenton Gordillo Electronically Signed By: Jonathon Velasquez
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
--- NOTE | 2024-10-01 02:35 | ECG_ITS ---
Test Reason : GI Bleed Blood Pressure : */* mmHG Vent. Rate : 90 BPM Atrial Rate : 90 BPM P-R Int : 132 ms QRS Dur : 82 ms QT Int : 362 ms P-R-T Axes : 73 80 60 degrees QTcB Int : 442 ms Normal sinus rhythm Normal ECG When compared with ECG of 04-Sep-2022 11:41, No significant change was found Referred By: Checo Hooks Electronically Signed By: Kenton Gordillo
[2024-10-01 02:57] LABS: C Reactive Protein 1.29 mg/dL (< or = 0.50); Troponin-I High Sensitivity < 2.7 ng/L (<3.5-35.0)
[2024-10-01] MEDS: 0.9 % Sodium Chloride 1,000 ML 999 ML IV (03:11)
[2024-10-01] MEDS: iohexoL 350 MG/ML 100 ML INFUS..BTL 85 ML IV (03:12)
[2024-10-01 03:18] LABS: B Type Natriuretic Peptide < 10 pg/mL (<100)
[2024-10-01 03:19] LABS: Troponin-I High Sensitivity < 2.7 ng/L (<3.5-35.0)
[2024-10-01 03:20] LABS: Erythrocyte Sedimentation Rate 6 MM/HR (0-15)
[2024-10-01 05:34] LABS: OBS Int Ctl Valid YES; OBS1 POSITIVE (NEGATIVE)
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
[2024-10-01] MEDS: Nicotine 21 MG PATCH.TD24 TRANSDERMA ×2 (06:16→23:45)
--- NOTE | 2024-10-01 07:00 | CA_ITS ---
Transthoracic Echocardiogram Patient (Last, First, Middle): Fredy Ansari, Gender: Male Date of : 1980 Age: 43 Procedure Date: 10/01/2024 Procedure Type: Transthoracic Echocardiogram Location: ER Height: 177.8 cm Weight: 117.94 kg BSA: 2.33 m2 Heart Rate: 86 bpm BP: 145 / 85 mmHg Hay Buckler: SB Referring MD: Lisa Esparza MD Symptoms: dyspnea Study Quality: Adequate w contrast ECG Rhythm: Sinus Conclusions: - Normal left ventricular size, thickness, and systolic function. The visually estimated ejection fraction is between 60-65%. - There is no evidence of regional wall motion abnormalities. - Mildly increased right ventricular cavity size. There is normal right ventricular systolic function. - There is mild dilatation of the ascending aorta measuring 4.20 cm. Findings Procedure Information Contrast agent, definity, is being given per protocol without apparent complications. The quality of the study was technically difficult. The study quality is limited by patients body habitus. Left Ventricle Normal left ventricular size, thickness, and systolic function. The visually estimated ejection fraction is between 60-65%. There is no evidence of regional wall motion abnormalities. Diastolic function is indeterminate on the basis of available data. Right Ventricle Mildly increased right ventricular cavity size. There is normal right ventricular systolic function. Atria The left atrium was not well visualized. The right atrium was not well visualized. Aortic Valve There is a normal trileaflet aortic valve. There is no aortic valve stenosis. There is no aortic valve regurgitation. Mitral Valve Likely normal mitral valve structure and function. There is no mitral valve regurgitation. There is no mitral valve stenosis. Pulmonic Valve The pulmonic valve is normal. There is no pulmonic valve regurgitation. Tricuspid Valve Likely normal tricuspid valve structure and function. Tricuspid regurgitation envelope is inadequate for calculation of right ventricular systolic pressure. Indeterminate right atrial pressure. Great Vessels There is mild dilatation of the ascending aorta measuring 4.20 cm. The visualized portions of the pulmonary artery and branches are normal. Venous The inferior vena cava was not well visualized. Pericardium/Pleural There is no evidence of pericardial effusion. Prior Study Comparison No prior study available for comparison. Measurements 2D Linear Measurements IVSd: 1.03 0.6-0.9/0.6-1.0 cm LVIDd: 5.36 3.9-5.3/4.2-5.9 cm LVIDd Index: 2.30 2.4-3.2/2.2-3.1 cm/m2 LVIDs: 4.33 2.0-3.6 cm LVPWd: 0.80 0.7-1.1 cm LA Diam: 4.00 2.7-3.8/3.0-4.0 cm LAIDs Index: 1.72 1.5-2.3 cm/m2 LV Mass: 226.57 67-162/88-224 g LV Mass Index: 97.24 43-95/49-115 g/m2 LVOT Diam: 2.40 3.0+(-)1.3 cm 2D Systolic Function EF 4C: 61.70 >55% EF 2C: 67.20 >55% EF BiP: 63.70 >55% Mitral Valve MV Pk E: 0.78 MV PK A: 0.56 MV Decel Time: 169.00 E/A: 1.40 E'Lateral: 9.90 E'Medial: 11.70 E/E' Med: 6.70 E/E' Lat: 7.90 PHT: 50.00 MVA PHT: 4.40 Decel [place]: 4.64 Aortic Valve AoV Pk Rob: 1.26 AoV Mn Rob: 1.02 AoV VTI: 0.27 AoV Pk Grad: 6.00 Aov Mn Grad: 5.00 AN Cont.VTI: 4.47 LVOT LVOT Pk Rob: 1.21 LVOT Mn Rob: 0.96 LVOT VTI: 0.27 LVOT Pk Grad: 6.00 LVOT Mn Grad: 4.00 LVOT Diam: 2.40 LVOT Area: 4.52 Diastolic Function MV Pk E: 0.78 MV Pk A: 0.56 E/A: 1.40 E'Medial: 11.70 E/E' Med: 6.70 E' Laterial: 9.90 E/E' Lat: 7.90 Right Ventricle TAPSE (mm): 25.70 TVS' Rob: 14.50 Great Vessels Aorta Sinus of Valsalva: 3.50 2.0-3.5 cm Ao Asc: 4.20 2.1-3.4 cm Pulmonary Veins Pulm Vein S/D 1.10 Pulmonary Valve PV Pk Rob: 0.97 Peak PV Grad: 4.00 Updated in Other Vendor System with Status of Final Kenton Gordillo MD electronically signed on 10/01/2024 2:47:36 PM with status of Final
[2024-10-01 07:28] LABS: TSH reflex Free T4 1.89 uIU/mL (0.32-4.0)
[2024-10-01] MEDS: Pantoprazole Sodium 40 MG/10 ML VIAL IVPUSH (07:46)
[2024-10-01 08:16] LABS: Estimated Average Glucose 108 mg/dL; Hemoglobin A1C 130.9871 umol/L; Hemoglobin A1c % 5.4 % (<6.0); Total Hemoglobin (HGBA1C) 3652.8081 umol/L
[2024-10-01 08:39] LABS: Troponin-I High Sensitivity < 2.7 ng/L (<3.5-35.0)
[2024-10-01] MEDS: Hydrocortisone 100 MG/60 ML ENEMA PR (10:39)
--- NOTE | 2024-10-01 11:11 | PC.NURSE ---
Report received. Taken over care at this time.
--- NOTE | 2024-10-01 11:34 | MHC.SHP ---
Pre-Procedural Eval Section A - 24 Hr Update-Section A only Date of Service: 10/01/24 The patient is an INPATIENT: Yes Changes since office visit: No Cold of Flu in the past 2 weeks, No New Medical Problems, No Changes in Medication and No Patient answered all questions The patient has been examined within 24 hours of the surgical procedure. The History & Physical has been completed within 30 days and I have reviewed it.: Yes Section B - Complete if H&P > 30 days Chief Complaint: blood in stool Allergies: Allergies Allergy/AdvReac Type Severity Reaction Status Date / Time codeine [CODEINE] Allergy Intermediate MY THROAT Verified 09/30/24 23:08 AND CHEST FLOYD LOBSTER Allergy Unknown UNKNOWN Uncoded 09/30/24 23:08 SEAFOOD Allergy Unknown UNKNOWN Uncoded 09/30/24 23:08 SHELLFISH Allergy Unknown VOMITTING Uncoded 09/30/24 23:08 shellfish Allergy Unknown Swelling Uncoded 09/30/24 23:08 Plan I have reviewed the history and physical and performed a pertinent physical examination on my patient. No changes have occurred unless specified. Time Spent With Patient Time: Total time managing care of this patient today ____ minutes.
--- NOTE | 2024-10-01 11:35 | PM.EVENT ---
Event Note Date of Service: 10/01/24 Event Note: GI consult dictated Colonoscopy planned for 10/02 for further evaluation of gi bleeding Time Spent With Patient Time: Total time managing care of this patient today ____ minutes.
--- NOTE | 2024-10-01 11:37 | PHA.MEDREC ---
Addendum entered by Ashley Castro RPh 10/01/24 11:57: REVIEWED BY [facility] Original Note: Pharmacy Consult ? Medication Reconciliation Pharmacy has completed the medication reconciliation. Spoke with patient and he confirmed he is only taking the Lisinopril-Hydrochlorothiazide 50-12.5mg 1 tab daily for his HBP and he got a cream for hemorrhoids OTC he takes twice a day. I asked about the Dicyclomine and the patient was not sure if he got it or not and did not remember getting that at the pharmacy; I tried to call his pharmacy and was on hold for over an hour and was not able to connect to them, I did take the Dicyclomine off the med rec due to patient not knowing about it.
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
[2024-10-01] MEDS: PEG 3350/Na Sulf,Bicarb,Cl/KCL 4,000 ML SOLN.RECON 4000 ML PO (12:30)
--- NOTE | 2024-10-01 13:21 | MHC.CM.PN ---
FROM HOME, WITH FAMILY NO DME OR SERVICES WORKING ON PCP AND INSURANE FROM PREVIOUS VISITS HCP IS [facility], , FILLED OUT DURING A PREVIOUS VISIT LAST WEEK. DCP-HOME, SELF CARE, FIND PCP
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
[2024-10-01] MEDS: 0.9 % Sodium Chloride Flush 3 ML SYRINGE IVFLUSH (16:49)
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
[2024-10-02] VITALS (9 sets, daily range): BP systolic 115–160; BP diastolic 68–91; PULSE 79–105; RESP 16–18; TEMP 36.3–36.8; O2SAT 93–99
--- NOTE | 2024-10-02 | PC.NURSE ---
Assumed care of pt at 2310. PT resting quietly, in no acute distress. Denies pain. CIWA 0. VSS, on tele NSR, Medicated as per AUG. PT aware of plan of care at this time. NPO at midnight.
[2024-10-02] MEDS: 0.9 % Sodium Chloride Flush 3 ML SYRINGE IVFLUSH ×3 (02:12→16:28)
[2024-10-02] MEDS: Pantoprazole Sodium 40 MG/10 ML VIAL IVPUSH (05:31)
[2024-10-02 07:23] LABS: Hematocrit 41.5 % (42.0-52.0); Mean Corpuscular HGB Conc 33.7 g/dl (31.0-36.0); Mean Corpuscular Volume 100.7 fL (80.0-98.0); Mean Platelet Volume 10.8 fL (9.4-12.4); Platelet Count 135 X10*3/uL (160-400); Red Blood Count 4.12 X10*6/uL (4.60-5.80); Red Cell Distribution Width 12.2 % (11.0-16.0); White Blood Count 5.8 X10*3/uL (4.8-10.8)
[2024-10-02 07:38] LABS: Anion Gap 12 (12-20); Blood Urea Nitrogen 11 mg/dL (9-16); Calcium 8.4 mg/dL (8.4-10.2); Carbon Dioxide 25 mmol/L (22-29); Chloride 106 mmol/L (96-108); Creatinine Clr Calc Pharmacy 190.8; Estimated Glomerular Filt Rate > 60; Glucose Random 108 mg/dL (60-115); Potassium 3.6 mmol/L (3.3-5.1); Sodium 139 mmol/L (135-145)
[2024-10-02] MEDS: Nicotine 21 MG PATCH.TD24 TRANSDERMA (08:22)
[2024-10-02] MEDS: Hydrocortisone 100 MG/60 ML ENEMA PR (08:26)
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
--- NOTE | 2024-10-02 11:45 | PM.EVENT ---
Event Note Date of Service: 10/02/24 Event Note: Colonoscopy note dictated 2 polyps, snared no bleeding internal hemorrhoids Time Spent With Patient Time: Total time managing care of this patient today ____ minutes.
--- NOTE | 2024-10-02 12:46 | OP_ITS ---
DATE OF SERVICE: 10/02/2024 SURGEON: Ovi Fuller MD INDICATIONS: Rectal bleeding. PREOPERATIVE DIAGNOSIS: POSTOPERATIVE DIAGNOSIS: PROCEDURE PERFORMED: Colonoscopy to the cecum with snare polypectomy. ESTIMATED BLOOD LOSS: COMPLICATIONS: ANESTHESIA: Monitored anesthesia care. ASSISTANTS: SPECIMENS: DESCRIPTION OF PROCEDURE: History and physical was performed. The risks and benefits of the procedure were explained to the patient. Informed consent was obtained. The patient was placed in the left lateral decubitus position. A digital rectal exam was performed and was found to be normal. The Olympus pediatric video colonoscope was introduced into the rectum and advanced to the cecum. The cecum was identified by transillumination, palpation, and identification of ileocecal valve. Examination was performed. The scope was removed. He tolerated the procedure well and was returned to recovery area in stable condition. FINDINGS: The terminal ileum was not examined. Views of the cecum were somewhat limited due to some retained stool, which was washed and suctioned. Two polyps were identified and removed using a snare. The first was located in the proximal transverse colon measuring approximately 10 mm. This was removed with a hot snare. The 2nd was located at 50 cm and measured approximately 5 mm. This was removed with a cold snare. No other polyps were identified. Retroflexed examination showed moderate-sized internal hemorrhoids. IMPRESSION: Colon polyps. RECOMMENDATION: Follow up the biopsy results. MD GANESH Herrera/MALIK / [id number]
--- NOTE | 2024-10-02 14:14 | PM.PNCARD ---
Subjective Subjective Date of Service: 10/02/24 Interval history: Seen examined at bedside after colonoscopy. He underwent exercise stress test where he was able to exercise up to 7.2 metabolic equivalents without any EKG changes. He did have mild dyspnea. He was cleared for colonoscopy which he has done and has shown colon polyps which have been snared. Physical Exam Vital Signs: Last Vital Signs Temp 97.7 F 10/02/24 12:39 Pulse 87 10/02/24 12:39 Resp 17 10/02/24 12:39 BP 156/91 H 10/02/24 12:39 Pulse Ox 94 10/02/24 12:39 O2 Del Method Room Air 10/02/24 12:39 BMI result Body Mass Index 37.4 GENERAL APPEARANCE: in no acute distress, pleasant. NECK: no carotid bruit, no jugular venous distention. SKIN: no suspicious lesions, warm and dry. HEART: no murmurs, regular rate and rhythm. LUNGS: clear to auscultation bilaterally. ABDOMEN: soft, nontender. EXTREMITIES: no edema. PERIPHERAL PULSES: equal. NEUROLOGIC: No gross deficits, AAO X 3 Objective Labs and Meds 10/02/24 06:44 10/02/24 06:44 Lab results: Laboratory Results - last 24 hr 10/02/24 06:44 WBC 5.8 RBC 4.12 L Hgb 14.0 Hct 41.5 L MCV 100.7 H MCH 34.0 H MCHC 33.7 RDW 12.2 Plt Count 135 L MPV 10.8 Absolute Nucleated RBC 0.000 Nucleated RBC % (auto) 0.0 Sodium 139 Potassium 3.6 Chloride 106 Carbon Dioxide 25 Anion Gap 12 BUN 11 Creatinine 0.63 Estim Creat Clear Calc 190.8 Estimated GFR > 60 Random Glucose 108 Calcium 8.4 D Progress Note: A&P Assessment and plan (1) Dyspnea on exertion: Status: Acute (2) Lower gastrointestinal bleed: Status: Acute Plan [age] year gentleman presenting for dyspnea on exertion and rectal bleeding. No anemia. He underwent colonoscopy which is showing polyps. Echocardiography did not show any wall motion abnormalities or valvular dysfunction. He underwent stress testing where he was able to exercise to 7.2 metabolic equivalents without significant symptoms or EKG changes. He was cleared for endoscopy underwent colonoscopy which showed polyps only at this point. Blood pressure is elevated. Adding carvedilol 6.25 mg twice a day. I think current plan will be to control blood pressure and eventually discharge him home. We will do further workup as outpatient. Thank you for allowing me to participate in the care of your patient. Please feel free to contact me if you have any questions. Time Spent With Patient Time: Total time managing care of this patient today ____ minutes. Progress Note: Quality Stroke Does the patient have a stroke diagnosis?: No Reason for No Anti-thrombotic by Day Two: Contraindicated Procedures Date of Service Date of Service: 10/02/24
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
[2024-10-02] MEDS: predniSONE 20 MG TABLET 40 MG PO (16:27)
== END 2024-10-02 17:13 | disposition home or self-care (01) ==
LOC: HO.ED 10-01 05:57 → HO.EDOVER 10-01 06:36 → HO.IMC 10-02 02:16
PROVIDERS: Internal Medicine Gastroenterology; Nurse Practitioner Family; Admitting Provider Student in an Organized Health Care Education/Training Program; Emergency Provider Emergency Medicine Emergency Medical Services; Visit Provider Physician Assistant Medical
PROC: 0DJD8ZZ Inspection of Lower Intestinal Tract, Via Natural or Artificial Opening Endoscopic (ICD-10-PCS; CPT 45378; principal; 2024-10-02 11:40)
DX: K92.2 Gastrointestinal hemorrhage, unspecified (principal); D12.3 Benign neoplasm of transverse colon; K63.5 Polyp of colon; R55 Syncope and collapse; R06.09 Other forms of dyspnea; R61 Generalized hyperhidrosis; I10 Essential (primary) hypertension; F17.200 Nicotine dependence, unspecified, uncomplicated; E66.01 Morbid (severe) obesity due to excess calories; R74.01 Elevation of levels of liver transaminase levels; Z68.37 Body mass index [BMI] 37.0-37.9, adult; Z79.899 Other long term (current) drug therapy
CPT/HCPCS: 45385; 36415; 71275; 80048; 80053; 82272; 83036; 83690; 83880; 84443; 84484; 85025; 85027; 85652; 86140; 88305; 93005; 93017; 93306; 96361; 96374; 96376; 99222; 99285; J2003; J2250; J2470; J2704; Q9957; Q9967; S9485

== ENCOUNTER → 2024-10-01 02:40 | Outpatient (BNV) | payer MEDICAID, SELFPAY | PROVIDERS: Emergency Provider Emergency Medicine Emergency Medical Services; Visit Provider Radiology Diagnostic Radiology | DX: R06.02 Shortness of breath (principal); R06.09 Other forms of dyspnea | CPT/HCPCS: 71275 ==

== ENCOUNTER 2024-10-01 06:03 | Outpatient (BNV) | payer MEDICAID, SELFPAY | END 2024-10-01 07:00 | PROVIDERS: Admitting Provider Student in an Organized Health Care Education/Training Program; Emergency Provider Emergency Medicine Emergency Medical Services; Visit Provider Internal Medicine Cardiovascular Disease | DX: R06.02 Shortness of breath (principal) | CPT/HCPCS: 93010; 93016; 93018; 93350; 93352 ==

== ENCOUNTER → 2024-10-01 06:03 | Outpatient (BNV) | payer MEDICAID, SELFPAY | PROVIDERS: Admitting Provider Student in an Organized Health Care Education/Training Program; Emergency Provider Emergency Medicine Emergency Medical Services; Visit Provider Nurse Practitioner Family | DX: R55 Syncope and collapse (principal) | CPT/HCPCS: 99222; 99499 ==

== ENCOUNTER → 2024-10-01 06:03 | Outpatient (BNV) | payer MEDICAID, SELFPAY | PROVIDERS: Admitting Provider Student in an Organized Health Care Education/Training Program; Emergency Provider Emergency Medicine Emergency Medical Services; Visit Provider Internal Medicine Cardiovascular Disease | DX: R06.09 Other forms of dyspnea (principal); K92.2 Gastrointestinal hemorrhage, unspecified | CPT/HCPCS: 99223 ==